=== PATIENT | male | born 1960 | race Caucasian/White ===

== ENCOUNTER 2016-09-28 10:30 | Inpatient (IN) | payer OTHER ==
[2016-09-28 12:31] VITALS: BMI 30.1
--- NOTE | 2016-09-28 15:40 | HP ---
COWS - Scale Resting Pulse: 0= [place] 80 or Below Sweatin=Flushed/Facial Moisture Restless Observation: 1= Difficult to Sit Still Pupil Size: 2= Moderately Dilated Bone or Joint Aches: 1= Mild Discomfort Runny Nose/ Eye Tearin= Runny Nose/Eyes GI Upset > 30mins: 2= Nausea/Diarrhea Tremor Observation: 2= Slight Tremor Visible Yawning Observation: 1= 1-2x During Session Anxiety or Irritability: 2=Irritable/Anxious Goose Flesh Skin: 0=Smooth Skin COWS Score: 15 CIWA Score - CIWA Score Nausea/Vomitin-Mild Nausea/No Vomiting Muscle Tremors: 4-Moderate,w/Arms Extend Anxiety: 4-Mod. Anxious/Guarded Agitation: 4-Moderately Restless Paroxysmal Sweats: 3 Orientation: 0-Oriented Tacttile Disturbances: 0-None Auditory Disturbances: 0-None Visual Disturbances: 0-None Headache: 0-None Present CIWA-Ar Total Score: 16 Admission ROS BHS - HPI Chief Complaint: Withdrawal sx. Allergies/Adverse Reactions: Allergies Allergy/AdvReac Type Severity Reaction Status Date / Time No Known Allergies Allergy Verified 09/28/16 14:21 History of Present Illness: 55 y/o man with a long hx. of heroin & alcohol dependence is admitted for detox. Pt. has been in previous detox,reports 5 yrs. sobriety. Exam Limitations: No Limitations - Ebola screening Have you traveled outside of the country in the last 21 days: No Have you had contact with anyone from an Ebola affected area: No Have you been sick,other than usual withdrawal symptoms: No - Review of Systems Constitutional: Diaphoresis EENT: reports: Nose Congestion Respiratory: reports: No Symptoms reported Cardiac: reports: No Symptoms Reported GI: reports: Nausea, Abdominal cramping : reports: No Symptoms Reported Musculoskeletal: reports: Back Pain, Joint Pain, Muscle Pain Integumentary: reports: Sweating Neuro: reports: Tremors Endocrine: reports: No Symptoms Reported Hematology: reports: No Symptoms Reported Psychiatric: reports: No Sypmtoms Reported Other Systems: Reviewed and Negative Patient History - Patient Medical History Hx Anemia: No Hx Asthma: No Hx Chronic Obstructive Pulmonary Disease (COPD): No Hx Cancer: No Hx Cardiac Disorders: Yes (triple bypass sx in 12/2015) Hx Congestive Heart Failure: No Hx Hypertension: Yes (was on cozaar) Hx Hypercholesterolemia: No Hx Pacemaker: No HX Cerebrovascular Accident: No Hx Seizures: No Hx Dementia: No Hx Diabetes: Yes (IDDM) Hx Gastrointestinal Disorders: No Hx Liver Disease: No Hx Genitourinary Disorders: No Hx Sexually Transmitted Disorders: No Hx Renal Disease (ESRD): No Hx Thyroid Disease: No Hx Human Immunodeficiency Virus (HIV): No Hx Hepatitis C: No Hx Depression: Yes Hx Suicide Attempt: No Hx Bipolar Disorder: No Hx Schizophrenia: No - Patient Surgical History Past Surgical History: No Hx Neurologic Surgery: No Hx Cataract Extraction: No Hx Cardiac Surgery: Yes (triple bypass in 12/2015) Hx Lung Surgery: No Hx Breast Surgery: No Hx Breast Biopsy: No Hx Abdominal Surgery: No Hx Appendectomy: No Hx Cholecystectomy: No Hx Genitourinary Surgery: No Hx Section: No Hx Orthopedic Surgery: No Anesthesia Reaction: No - PPD History Previous Implant?: Yes Documented Results: Positive w/o proof PPD to be Administered?: No - Smoking Cessation Smoking history: Current every day smoker Have you smoked in the past 12 months: Yes If you are a former smoker, when did you quit?: at age 30 Cigars Per Day: 7 Hx Chewing Tobacco Use: No Initiated information on smoking cessation: Yes 'Breaking Loose' booklet given: 09/28/16 - Substance & Tx. History Hx Alcohol Use: Yes Hx Substance Use: Yes Substance Use Type: Alcohol, Heroin Hx Substance Use Treatment: Yes (detox) - Substances Abused Heroin Route: Injection Frequency: Daily Amount used: 6 bags Age of first use: 30 Date of Last Use: 09/27/16 Alcohol-jan/beer Route: Oral Frequency: Daily Amount used: 2 pts./2-6 pks. Age of first use: 25 Date of Last Use: 09/28/16 Family Disease History - Family Disease History Family Disease History: Diabetes: Grandparent, Heart Disease: Father ([place]) Admission Physical Exam BHS - Vital Signs Vital Signs: Vital Signs - 24 hr 09/28/16 12:29 Temperature 97 F L Pulse Rate 78 Respiratory 20 Rate Blood Pressure 134/77 - Physical General Appearance: Yes: Alcohol on Breath, Tremorous, Irritable, Sweating, Anxious HEENTM: Yes: Nasal Congestion, Rhinorrhea Respiratory: Yes: Within Normal Limits, Chest Non-Tender, Lungs Clear Neck: Yes: Supple Breast: Yes: Breast Exam Deferred Cardiology: Yes: Regular Rhythm, Regular Rate, S1, S2 Abdominal: Yes: Normal Bowel Sounds, Non Tender, Soft Genitourinary: Yes: Within Normal Limits Back: Yes: Within Normal Limits Musculoskeletal: Yes: Within Normal Limits Extremities: Yes: Tremors Neurological: Yes: Fully Oriented, Alert Integumentary: Yes: Within Normal Limits Lymphatic: Yes: Within Normal Limits - Diagnostic (1) Essential hypertension Current Visit: Yes Status: Active (2) Nicotine dependence Current Visit: Yes Status: Acute Qualifiers: Nicotine product type: cigarettes Substance use status: uncomplicated Qualified Code(s): F17.210 - Nicotine dependence, cigarettes, uncomplicated (3) Type 2 diabetes mellitus Current Visit: Yes Status: Acute Qualifiers: Diabetes mellitus complication status: without complication Diabetes mellitus assisted insulin use: with assisted use Qualified Code(s): E11.9 - Type 2 diabetes mellitus without complications; Z79.4 - terminal gauger ( current) use of insulin (4) Alcohol dependence with uncomplicated withdrawal Current Visit: Yes Status: Acute (5) Opioid dependence with withdrawal Current Visit: Yes Status: Acute Cleared for Admission [facility] - Detox or Rehab [facility] Level of Care: Medically Managed Detox Regimen/Protocol: Methadone/Librium [facility] Breath Alcohol Content Breath Alcohol Content: 0.025 Urine Drug Screen - Results Drug Screen Negative: No Urine Drug Screen Results: ROZINA-Cocaine, OPI-Opiates, MTD-Methadone
[2016-09-28] MEDS ORDERED: NICOTINE POLACRILEX 2 MG GUM BUC PRN (15:51)
[2016-09-28] MEDS ORDERED: MAGNESIUM CITRATE 300 ML BOTTLE PO PRN (15:51)
[2016-09-28] MEDS ORDERED: hydrOXYzine PAMOATE 50 MG CAPSULE (FP) PO PRN (15:51)
[2016-09-28] MEDS ORDERED: P-EPHED 60MG/TRIPROLIDI 2.5MG TABLET PO PRN (15:51)
[2016-09-28] MEDS ORDERED: guaiFENesin/D-METHORPHAN HB 10 ML UNIT-DOSE CUPS PO PRN (15:51)
[2016-09-28] MEDS ORDERED: MAGNESIUM HYDROX 2400MG/30ML ORAL SUSPENSION 30 ML CUP PO PRN (15:51)
[2016-09-28] MEDS ORDERED: MENTHOL/PHENOL 1 EACH UD MM PRN (15:51)
[2016-09-28] MEDS ORDERED: MAG HYDROX/AL HYDROX/SIMETH 30 ML UNIT-DOSE CUP PO PRN (15:51)
[2016-09-28] MEDS ORDERED: chlordiazePOXIDE HCL 25 MG CAPSULE PO PRN (15:51)
[2016-09-28] MEDS ORDERED: ACETAMINOPHEN 325 MG TABLET (FP) PO PRN (15:51)
[2016-09-28] MEDS ORDERED: IBUPROFEN 400 MG TABLET (FP) PO PRN (15:51)
[2016-09-28] MEDS ORDERED: LOPERAMIDE HCL 2 MG CAPSULE PO PRN (15:51)
[2016-09-28] MEDS ORDERED: METHADONE HCL 10 MG TABLET (FOR DETOX USE ONLY) PO ONE ×2 (16:45→23:00)
[2016-09-28] MEDS: NICOTINE 14 MG/24 HOURS TOPICAL PATCH TD SCH (17:46)
[2016-09-28] MEDS: ASPIRIN 81 MG CHEWABLE TABLETS PO SCH (17:48)
[2016-09-28] MEDS: chlordiazePOXIDE HCL 25 MG CAPSULE PO SCH ×2 (17:48→22:24)
[2016-09-28] MEDS: metFORMIN HCL 500 MG TABLET (FP) PO SCH (17:48)
[2016-09-28] MEDS ORDERED: diphenhydrAMINE HCL 50 MG CAPSULE PO PRN (22:00)
[2016-09-28] MEDS: THIAMINE HCL 100 MG TABLET (FP) PO SCH (22:23)
[2016-09-29 00:12] LABS: URINE APPEARANCE CLEAR; URINE BILIRUBIN NEGATIVE (NEGATIVE); URINE BLOOD NEGATIVE (NEGATIVE); URINE COLOR YELLOW; URINE GLUCOSE (UA) 1+ (NEGATIVE); URINE KETONE TRACE (NEGATIVE); URINE LEUK ESTERASE NEGATIVE (NEGATIVE); URINE NITRITE NEGATIVE (NEGATIVE); URINE UROBILINOGEN NEGATIVE E.U./dl (0.2-1.0)
[2016-09-29 01:22] LABS: URINE PROTEIN 1+ (NEGATIVE)
[2016-09-29 01:40] LABS: URINE HYALINE CAST 1 /lpf; URINE MUCUS RARE; URINE RBC 1 /hpf (0-3); URINE WBC 1 /hpf (3-5)
[2016-09-29] MEDS: chlordiazePOXIDE HCL 25 MG CAPSULE PO SCH ×3 (05:30→11:00)
[2016-09-29] MEDS: metFORMIN HCL 500 MG TABLET (FP) PO SCH ×2 (07:28→17:50)
[2016-09-29] MEDS ORDERED: METHADONE HCL 10 MG TABLET (FOR DETOX USE ONLY) PO SCH (10:00)
[2016-09-29] MEDS: ASPIRIN 81 MG CHEWABLE TABLETS PO SCH (10:30)
[2016-09-29] MEDS: NICOTINE 14 MG/24 HOURS TOPICAL PATCH TD SCH (10:30)
[2016-09-29] MEDS: PRENATAL VITAMINS W/ FOLIC ACID TABLET (FP) PO SCH (10:30)
[2016-09-29 10:36] LABS: MCH 28.8 pg (25.7-33.7); MCHC 33.1 g/dl (32.0-35.9); MEAN CELL VOLUME 86.9 fl (80-96); MEAN PLT VOLUME 12.1 fl (7.5-11.1); PLATELET COUNT 109 K/MM3 (134-434); RDW 14.4 % (11.9-15.9); WHITE BLOOD COUNT 7.5 K/mm3 (4.0-10.0)
[2016-09-29 10:54] LABS: ALBUMIN 3.6 g/dl (3.4-5.0); ALK PHOS 147 U/L (45-117); ANION GAP 12 (8-16); BILIRUBIN,TOTAL 0.4 mg/dL (0.2-1.0); CALCIUM 8.6 mg/dL (8.5-10.1); CO2 24 mmol/L (21-32); COCKROFT - GAULT 130.04; CREATININE 0.7 mg/dL (0.7-1.3); GLUCOSE,RANDOM 209 mg/dL (74-106); SGOT/AST 42 U/L (15-37); SGPT/ALT 39 U/L (12-78); TOT PROT 7.4 g/dl (6.4-8.2)
[2016-09-29] MEDS ORDERED: diazePAM 5 MG TABLET PO ONE (12:16)
[2016-09-29] MEDS ORDERED: diazePAM 5 MG TABLET PO PRN (12:16)
[2016-09-29 12:49] LABS: HIV 1 & 2 AB NEGATIVE; HIV 1 AGp24 NEGATIVE
--- NOTE | 2016-09-29 13:52 | CONSULT ---
[facility] Psychiatric Consult - Data Date of interview: 09/29/16 Admission source: [facility] Identifying data: Readmission to [facility] for this 55 y/o male seeking detox treatment for alcohol,heroin and cocaine dependence.Patient is ,a father of six,domiciled,unemployed and supported on [facility] benefits. Substance Abuse History: - Smoking Cessation. Smoking history: Current every day smoker. Have you smoked in the past 12 months: Yes. If you are a former smoker, when did you quit?: at age 30. Cigars Per Day: 7. Hx Chewing Tobacco Use: No. Initiated information on smoking cessation: Yes. 'Breaking Loose' booklet given: 09/28/16. - Substance & Tx. History. Hx Alcohol Use: Yes. Hx Substance Use: Yes. Substance Use Type: Alcohol, Heroin. Hx Substance Use Treatment: Yes (detox). - Substances Abused. Heroin. Route: Injection. Frequency: Daily. Amount used: 6 bags. Age of first use: 30. Date of Last Use : 09/27/16. Alcohol-jan/beer. Route: Oral. Frequency: Daily. Amount used: 2 pts./2-6 pks. Age of first use: 25. Date of Last Use: 09/28/16. Confirmed by patient. Medical History: Arthritis,hypertension,diabetes mellitus and a history of triple bypass (206). Psychiatric History: Patient denies history of psychiatric hospitalizations.No current OPD care.Mr Coreas indicates that he used to be prescribed seroquel 25- 50 mg/hs for insomnia (primary care doctor).No history of suicide attempts. Physical/Sexual Abuse/Trauma History: Patient denies. Additional Comment: Urine Drug Screen Results: ROZINA-Cocaine, OPI-Opiates, MTD- Methadone.Noted. Mental Status Exam - Mental Status Exam Alert and Oriented to: Time, Place, Person Cognitive Function: Good Patient Appearance: Disheveled Mood: Withdrawn, Irritable Affect: Mood Congruent Patient Behavior: Passive, Fatigued, Cooperative Speech Pattern: Clear Voice Loudness: Normal Thought Process: Goal Oriented Thought Disorder: Not Present Hallucinations: Denies Suicidal Ideation: Denies Homicidal Ideation: Denies Insight/Judgement: Poor Sleep: Poorly, Difficulty falling asleep Appetite: Good Muscle strength/Tone: Normal Gait/Station: Normal Psychiatric Findings - Problem List ([place] 1, 2,3) (1) Alcohol dependence with uncomplicated withdrawal Current Visit: Yes Status: Acute (2) Opioid dependence with withdrawal Current Visit: Yes Status: Acute (3) Cocaine dependence Current Visit: Yes Status: Acute (4) Nicotine dependence Current Visit: Yes Status: Acute Qualifiers: Nicotine product type: cigarettes Substance use status: uncomplicated Qualified Code(s): F17.210 - Nicotine dependence, cigarettes, uncomplicated (5) Type 2 diabetes mellitus Current Visit: Yes Status: Chronic Qualifiers: Diabetes mellitus complication status: without complication Diabetes mellitus equipment operator intermodal yard insulin use: with equipment operator intermodal yard use Qualified Code(s): E11.9 - Type 2 diabetes mellitus without complications (6) Chronic back pain Current Visit: Yes Status: Chronic (7) Obesity Current Visit: Yes Status: Chronic (8) Insomnia Current Visit: Yes Status: Chronic - Initial Treatment Plan Initial Treatment Plan: Psychoeducation.Detoxification.Seroquel 25 mg po hs ( patient's request).Side effects/benefits discussed with patient.Observation.
[2016-09-29] MEDS: diazePAM 5 MG TABLET PO SCH ×2 (14:10→22:22)
[2016-09-29] MEDS ORDERED: chlordiazePOXIDE HCL 25 MG CAPSULE PO SCH (17:00)
--- NOTE | 2016-09-29 17:09 | PN ---
S CIWA - CIWA Score Nausea/Vomitin-No Nausea/No Vomiting Muscle Tremors: 3 Anxiety: 4-Mod. Anxious/Guarded Agitation: 3 Paroxysmal Sweats: 3 Orientation: 0-Oriented Tacttile Disturbances: 2-Mild Itch/Numbness/Burn Auditory Disturbances: 2-Mild Harshness/Frighten Visual Disturbances: 0-None Headache: 2-Mild CIWA-Ar Total Score: 19 BHS COWS - Scale Resting Pulse: 0= [place] 80 or Below Sweatin= Chills/Flushing Restless Observation: 1= Difficult to Sit Still Pupil Size: 0= Normal to Room Light Bone or Joint Aches: 2= Severe Diffuse Aches Runny Nose/ Eye Tearin= Runny Nose/Eyes GI Upset > 30mins: 1= Stomach Cramp Tremor Observation of Outstretched Hands: 2= Slight Tremor Visible Yawning Observation: 1= 1-2x During Session Anxiety or Irritability: 2=Irritable/Anxious Goose Flesh Skin: 3=Piloerection COWS Score: 15 S Progress Note (SOAP) Subjective: Constipation, H/A, Body Aches,Interrupted sleep. Pt. reports that he has considerable difficulty swallowing Librium and that it causes him Stomach discomfort. Objective: PT. A & O X 3, OBSERVED AMBULATING ON UNIT. 09/29/16 17:07 Vital Signs Temperature 98 F 09/29/16 13:59 Pulse Rate 74 09/29/16 13:59 Respiratory Rate 20 09/29/16 13:59 Blood Pressure 129/81 09/29/16 13:59 O2 Sat by Pulse Oximetry (%) Laboratory Last Values WBC 7.5 K/mm3 (4.0-10.0) 09/29/16 06:30 RBC 5.48 M/mm3 (4.00-5.60) 09/29/16 06:30 Hgb 15.8 GM/dL (11.7-16.9) 09/29/16 06:30 Hct 47.6 % (35.4-49) 09/29/16 06:30 MCV 86.9 fl (80-96) 09/29/16 06:30 MCHC 33.1 g/dl (32.0-35.9) 09/29/16 06:30 RDW 14.4 % (11.9-15.9) 09/29/16 06:30 Plt Count 109 K/MM3 (134-434) L 09/29/16 06:30 MPV 12.1 fl (7.5-11.1) H 09/29/16 06:30 Sodium 138 mmol/L (136-145) 09/29/16 06:30 Potassium 3.6 mmol/L (3.5-5.1) 09/29/16 06:30 Chloride 102 mmol/L (98-107) 09/29/16 06:30 Carbon Dioxide 24 mmol/L (21-32) 09/29/16 06:30 Anion Gap 12 (8-16) 09/29/16 06:30 BUN 10 mg/dL (7-18) D 09/29/16 06:30 Creatinine 0.7 mg/dL (0.7-1.3) 09/29/16 06:30 Creat Clearance w eGFR > 60 (>60) 09/29/16 06:30 POC Glucometer 229 UNITS (()) 09/29/16 05:30 Random Glucose 209 mg/dL (74-106) H D 09/29/16 06:30 Calcium 8.6 mg/dL (8.5-10.1) 09/29/16 06:30 Total Bilirubin 0.4 mg/dL (0.2-1.0) D 09/29/16 06:30 AST 42 U/L (15-37) H D 09/29/16 06:30 ALT 39 U/L (12-78) D 09/29/16 06:30 Alkaline Phosphatase 147 U/L (45-117) H 09/29/16 06:30 Total Protein 7.4 g/dl (6.4-8.2) 09/29/16 06:30 Albumin 3.6 g/dl (3.4-5.0) 09/29/16 06:30 Urine Color Yellow 09/28/16 21:16 Urine Appearance Clear 09/28/16 21:16 Urine pH 5.0 (5.0-8.0) 09/28/16 21:16 Ur Specific [place] 1.024 (1.001-1.035) 09/28/16 21:16 Urine Protein 1+ (NEGATIVE) H 09/28/16 21:16 Urine Glucose (UA) 1+ (NEGATIVE) H 09/28/16 21:16 Urine Ketones Trace (NEGATIVE) H 09/28/16 21:16 Urine Blood Negative (NEGATIVE) 09/28/16 21:16 Urine Nitrite Negative (NEGATIVE) 09/28/16 21:16 Urine Bilirubin Negative (NEGATIVE) 09/28/16 21:16 Urine Urobilinogen Negative E.U./dl (0.2-1.0) 09/28/16 21:16 Ur Leukocyte Esterase Negative (NEGATIVE) 09/28/16 21:16 Urine RBC 1 /hpf (0-3) 09/28/16 21:16 Urine WBC 1 /hpf (3-5) 09/28/16 21:16 Hyaline Casts 1 /lpf 09/28/16 21:16 Urine Mucus Rare 09/28/16 21:16 RPR Titer Nonreactive (NONREACTIVE) 09/29/16 06:30 HIV 1&2 Antibody Screen Negative 09/28/16 10:00 HIV P24 Antigen Negative 09/28/16 10:00 LABS NOTED. Assessment: 09/29/16 17:08 WITHDRAWAL SYMPTOMS. Plan: LIBRIUM DETOX REGIMEN CHANGED TO VALIUM DETOX REGIMEN. CONTINUE METHADONE DETOX REGIMEN. BGM BIDAC. INITIATE REGULAR INSULIN SLIDING SCALE. ADVISED PATIENT TO FOLLOW-UP WITH LOAN DOCUMENTATION SPECIALIST / REHAB MEDICAL PROVIDER AFTER DISCHARGE FROM DETOX FOR GENERAL MEDICAL ASSESSMENT AND FOR ABNORMAL ADMISSION LAB VALUES.
[2016-09-29] MEDS: QUEtiapine FUMARATE 25 MG TABLET (FP) PO SCH (22:22)
[2016-09-29] MEDS: THIAMINE HCL 100 MG TABLET (FP) PO SCH (22:22)
[2016-09-30] MEDS: diazePAM 5 MG TABLET PO SCH ×3 (05:27→22:23)
[2016-09-30] MEDS ORDERED: INSULIN (NOVOLOG) ASPART 100 UNITS/ML 10ML VIAL ONE ×2 (05:30→17:06)
[2016-09-30] MEDS: metFORMIN HCL 500 MG TABLET (FP) PO SCH ×2 (07:11→17:40)
[2016-09-30] MEDS: INSULIN SLIDING SCALE (NOVOLOG) 1 VIAL SQ SCH ×2 (07:11→17:40)
[2016-09-30] MEDS: METHADONE HCL 5 MG TABLET (FOR DETOX USE ONLY) PO SCH (10:27)
[2016-09-30] MEDS: NICOTINE 14 MG/24 HOURS TOPICAL PATCH TD SCH (10:27)
[2016-09-30] MEDS: PRENATAL VITAMINS W/ FOLIC ACID TABLET (FP) PO SCH (10:27)
[2016-09-30] MEDS: ASPIRIN 81 MG CHEWABLE TABLETS PO SCH (10:27)
--- NOTE | 2016-09-30 11:54 | PN ---
S CIWA - CIWA Score Nausea/Vomitin Muscle Tremors: 4-Moderate,w/Arms Extend Anxiety: 4-Mod. Anxious/Guarded Agitation: 4-Moderately Restless Paroxysmal Sweats: 3 Orientation: 0-Oriented Tacttile Disturbances: 0-None Auditory Disturbances: 0-None Visual Disturbances: 0-None Headache: 0-None Present CIWA-Ar Total Score: 18 BHS COWS - Scale Resting Pulse: 1= [place] 81-100 Sweatin= Chills/Flushing Restless Observation: 1= Difficult to Sit Still Pupil Size: 1= Pupils >than Normal Bone or Joint Aches: 1= Mild Discomfort Runny Nose/ Eye Tearin= Nasal Congestion GI Upset > 30mins: 2= Nausea/Diarrhea Tremor Observation of Outstretched Hands: 2= Slight Tremor Visible Yawning Observation: 1= 1-2x During Session Anxiety or Irritability: 2=Irritable/Anxious Goose Flesh Skin: 3=Piloerection COWS Score: 16 S Progress Note (SOAP) Subjective: nausea, sweats, interrupted sleep, anxiety, tremors Objective: 09/30/16 11:53 Vital Signs - 24 hr 09/29/16 09/29/16 09/29/16 13:59 18:03 21:50 Temperature 98 F 97.7 F 96.2 F L Pulse Rate 74 70 69 Respiratory 20 20 18 Rate Blood Pressure 129/81 91/50 129/79 09/30/16 09/30/16 09/30/16 00:30 03:30 06:17 Temperature 95.8 F L Pulse Rate 69 Respiratory 18 18 18 Rate Blood Pressure 153/86 09/30/16 10:43 Temperature 96 F L Pulse Rate 74 Respiratory 19 Rate Blood Pressure 144/91 Laboratory Tests 09/28/16 09/28/16 09/29/16 10:00 21:16 05:30 WBC RBC Hgb Hct MCV MCHC RDW Plt Count MPV Sodium Potassium Chloride Carbon Dioxide Anion Gap BUN Creatinine Creat Clearance w eGFR POC Glucometer 229 Random Glucose Calcium Total Bilirubin AST ALT Alkaline Phosphatase Total Protein Albumin Urine Color Yellow Urine Appearance Clear Urine pH 5.0 Ur Specific [place] 1.024 Urine Protein 1+ H Urine Glucose (UA) 1+ H Urine Ketones Trace H Urine Blood Negative Urine Nitrite Negative Urine Bilirubin Negative Urine Urobilinogen Negative Ur Leukocyte Esterase Negative Urine RBC 1 Urine WBC 1 Hyaline Casts 1 Urine Mucus Rare RPR Titer HIV 1&2 Antibody Screen Negative HIV P24 Antigen Negative 09/29/16 09/29/16 09/29/16 06:30 06:30 06:30 WBC 7.5 RBC 5.48 Hgb 15.8 Hct 47.6 MCV 86.9 MCHC 33.1 RDW 14.4 Plt Count 109 L MPV 12.1 H Sodium 138 Potassium 3.6 Chloride 102 Carbon Dioxide 24 Anion Gap 12 BUN 10 D Creatinine 0.7 Creat Clearance w eGFR > 60 POC Glucometer Random Glucose 209 H D Calcium 8.6 Total Bilirubin 0.4 D AST 42 H D ALT 39 D Alkaline Phosphatase 147 H Total Protein 7.4 Albumin 3.6 Urine Color Urine Appearance Urine pH Ur Specific [place] Urine Protein Urine Glucose (UA) Urine Ketones Urine Blood Urine Nitrite Urine Bilirubin Urine Urobilinogen Ur Leukocyte Esterase Urine RBC Urine WBC Hyaline Casts Urine Mucus RPR Titer Nonreactive HIV 1&2 Antibody Screen HIV P24 Antigen 09/29/16 09/30/16 17:21 05:28 WBC RBC Hgb Hct MCV MCHC RDW Plt Count MPV Sodium Potassium Chloride Carbon Dioxide Anion Gap BUN Creatinine Creat Clearance w eGFR POC Glucometer 231 234 Random Glucose Calcium Total Bilirubin AST ALT Alkaline Phosphatase Total Protein Albumin Urine Color Urine Appearance Urine pH Ur Specific [place] Urine Protein Urine Glucose (UA) Urine Ketones Urine Blood Urine Nitrite Urine Bilirubin Urine Urobilinogen Ur Leukocyte Esterase Urine RBC Urine WBC Hyaline Casts Urine Mucus RPR Titer HIV 1&2 Antibody Screen HIV P24 Antigen hyperglycemia, elevated lfts, abnormal u/a Assessment: 09/30/16 11:53 withdrawal sx, ehpatitis Plan: cont detox, fluids, repeat u/a
--- NOTE | 2016-09-30 14:32 | EKG ---
Test Reason : Blood Pressure : / mmHG Vent. Rate : 070 BPM Atrial Rate : 070 BPM P-R Int : 160 ms QRS Dur : 084 ms QT Int : 384 ms P-R-T Axes : 006 069 028 degrees QTc Int : 414 ms NORMAL SINUS RHYTHM NONSPECIFIC T WAVE ABNORMALITY ABNORMAL ECG NO PREVIOUS ECGS AVAILABLE Confirmed by LAMONT HECK, RED ([id number]) on 09/30/2016 2:31:45 PM Referred By: Steve Jose Confirmed By:RED MIGUEL MD
[2016-09-30] MEDS ORDERED: chlordiazePOXIDE 5 MG CAPSULE PO SCH (17:00)
[2016-09-30] MEDS: THIAMINE HCL 100 MG TABLET (FP) PO SCH (22:22)
[2016-09-30] MEDS: QUEtiapine FUMARATE 25 MG TABLET (FP) PO SCH (22:22)
[2016-10-01] MEDS ORDERED: INSULIN (NOVOLOG) ASPART 100 UNITS/ML 10ML VIAL ONE ×2 (06:23→17:01)
[2016-10-01] MEDS: metFORMIN HCL 500 MG TABLET (FP) PO SCH ×2 (06:29→17:12)
[2016-10-01] MEDS: INSULIN SLIDING SCALE (NOVOLOG) 1 VIAL SQ SCH ×2 (07:45→17:12)
[2016-10-01] MEDS: PRENATAL VITAMINS W/ FOLIC ACID TABLET (FP) PO SCH (10:38)
[2016-10-01] MEDS: ASPIRIN 81 MG CHEWABLE TABLETS PO SCH (10:38)
[2016-10-01] MEDS: diazePAM 5 MG TABLET PO SCH ×2 (10:38→23:06)
[2016-10-01] MEDS: METHADONE HCL 5 MG TABLET (FOR DETOX USE ONLY) PO SCH (10:38)
[2016-10-01] MEDS: NICOTINE 14 MG/24 HOURS TOPICAL PATCH TD SCH (10:38)
--- NOTE | 2016-10-01 10:46 | PN ---
BHS Progress Note (SOAP) Subjective: Sweating,anxiety,interrupted sleep,restless.Has swelling at site of injection but no abscess noted. Objective: 10/01/16 10:45 Vital Signs - 8 hr 10/01/16 10/01/16 10/01/16 03:30 06:31 09:35 Temperature 96.7 F L 96.9 F L Pulse Rate 71 82 Respiratory 18 16 18 Rate Blood Pressure 131/85 116/75 Laboratory Tests 09/28/16 09/28/16 09/28/16 10:00 15:08 21:16 WBC RBC Hgb Hct MCV MCHC RDW Plt Count MPV Sodium Potassium Chloride Carbon Dioxide Anion Gap BUN Creatinine Creat Clearance w eGFR POC Glucometer 283 Random Glucose Calcium Total Bilirubin AST ALT Alkaline Phosphatase Total Protein Albumin Urine Color Yellow Urine Appearance Clear Urine pH 5.0 Ur Specific [place] 1.024 Urine Protein 1+ H Urine Glucose (UA) 1+ H Urine Ketones Trace H Urine Blood Negative Urine Nitrite Negative Urine Bilirubin Negative Urine Urobilinogen Negative Ur Leukocyte Esterase Negative Urine RBC 1 Urine WBC 1 Hyaline Casts 1 Urine Mucus Rare RPR Titer HIV 1&2 Antibody Screen Negative HIV P24 Antigen Negative 09/29/16 09/29/16 09/29/16 05:30 06:30 06:30 WBC 7.5 RBC 5.48 Hgb 15.8 Hct 47.6 MCV 86.9 MCHC 33.1 RDW 14.4 Plt Count 109 L MPV 12.1 H Sodium 138 Potassium 3.6 Chloride 102 Carbon Dioxide 24 Anion Gap 12 BUN 10 D Creatinine 0.7 Creat Clearance w eGFR > 60 POC Glucometer 229 Random Glucose 209 H D Calcium 8.6 Total Bilirubin 0.4 D AST 42 H D ALT 39 D Alkaline Phosphatase 147 H Total Protein 7.4 Albumin 3.6 Urine Color Urine Appearance Urine pH Ur Specific [place] Urine Protein Urine Glucose (UA) Urine Ketones Urine Blood Urine Nitrite Urine Bilirubin Urine Urobilinogen Ur Leukocyte Esterase Urine RBC Urine WBC Hyaline Casts Urine Mucus RPR Titer HIV 1&2 Antibody Screen HIV P24 Antigen 09/29/16 09/29/16 09/30/16 06:30 17:21 05:28 WBC RBC Hgb Hct MCV MCHC RDW Plt Count MPV Sodium Potassium Chloride Carbon Dioxide Anion Gap BUN Creatinine Creat Clearance w eGFR POC Glucometer 231 234 Random Glucose Calcium Total Bilirubin AST ALT Alkaline Phosphatase Total Protein Albumin Urine Color Urine Appearance Urine pH Ur Specific [place] Urine Protein Urine Glucose (UA) Urine Ketones Urine Blood Urine Nitrite Urine Bilirubin Urine Urobilinogen Ur Leukocyte Esterase Urine RBC Urine WBC Hyaline Casts Urine Mucus RPR Titer Nonreactive HIV 1&2 Antibody Screen HIV P24 Antigen 09/30/16 10/01/16 16:08 05:35 WBC RBC Hgb Hct MCV MCHC RDW Plt Count MPV Sodium Potassium Chloride Carbon Dioxide Anion Gap BUN Creatinine Creat Clearance w eGFR POC Glucometer 333 408 Random Glucose Calcium Total Bilirubin AST ALT Alkaline Phosphatase Total Protein Albumin Urine Color Urine Appearance Urine pH Ur Specific [place] Urine Protein Urine Glucose (UA) Urine Ketones Urine Blood Urine Nitrite Urine Bilirubin Urine Urobilinogen Ur Leukocyte Esterase Urine RBC Urine WBC Hyaline Casts Urine Mucus RPR Titer HIV 1&2 Antibody Screen HIV P24 Antigen labs noted Assessment: 10/01/16 10:46 Withdrawal sx. Plan: Continue detox bacitracin oin't to needle [email or web address]
[2016-10-01] MEDS: BACITRACIN 0.9 GM PACKET TP SCH ×2 (12:17→23:06)
[2016-10-01] MEDS ORDERED: chlordiazePOXIDE HCL 10 MG CAPSULE PO SCH (17:00)
[2016-10-01] MEDS: QUEtiapine FUMARATE 25 MG TABLET (FP) PO SCH (23:06)
[2016-10-01] MEDS: THIAMINE HCL 100 MG TABLET (FP) PO SCH (23:06)
[2016-10-02] MEDS ORDERED: INSULIN (NOVOLOG) ASPART 100 UNITS/ML 10ML VIAL ONE ×2 (06:34→17:20)
[2016-10-02] MEDS: metFORMIN HCL 500 MG TABLET (FP) PO SCH ×2 (07:18→17:24)
[2016-10-02] MEDS: INSULIN SLIDING SCALE (NOVOLOG) 1 VIAL SQ SCH ×2 (07:18→17:24)
[2016-10-02] MEDS ORDERED: METHADONE HCL 10 MG TABLET (FOR DETOX USE ONLY) PO SCH (10:00)
--- NOTE | 2016-10-02 10:14 | PN ---
BHS Progress Note (SOAP) Subjective: DCREASED ANXIETY,SWEATS. EAGER TO GO TO REHAB. Objective: 10/02/16 10:13 Vital Signs Temperature 97.0 F L 10/02/16 09:22 Pulse Rate 81 10/02/16 09:22 Respiratory Rate 18 10/02/16 09:22 Blood Pressure 132/81 10/02/16 09:22 O2 Sat by Pulse Oximetry (%) Assessment: 10/02/16 10:13 WITHDRAWAL SX Plan: CONTINUE DETOX
[2016-10-02] MEDS: BACITRACIN 0.9 GM PACKET TP SCH ×2 (10:17→22:44)
[2016-10-02] MEDS: ASPIRIN 81 MG CHEWABLE TABLETS PO SCH (10:17)
[2016-10-02] MEDS: diazePAM 5 MG TABLET PO SCH ×2 (10:17→22:43)
[2016-10-02] MEDS: PRENATAL VITAMINS W/ FOLIC ACID TABLET (FP) PO SCH (10:17)
[2016-10-02] MEDS: NICOTINE 14 MG/24 HOURS TOPICAL PATCH TD SCH (10:17)
[2016-10-02] MEDS: HYDROCORTISONE 2.5% TOPICAL CREAM 30 GM TUBE TP SCH ×2 (14:50→22:46)
[2016-10-02 17:00] LABS: URINE APPEARANCE CLEAR; URINE BILIRUBIN NEGATIVE (NEGATIVE); URINE BLOOD NEGATIVE (NEGATIVE); URINE COLOR STRAW; URINE GLUCOSE (UA) 3+ (NEGATIVE); URINE KETONE NEGATIVE (NEGATIVE); URINE LEUK ESTERASE NEGATIVE (NEGATIVE); URINE NITRITE NEGATIVE (NEGATIVE); URINE PROTEIN NEGATIVE (NEGATIVE); URINE UROBILINOGEN NEGATIVE E.U./dl (0.2-1.0)
[2016-10-02] MEDS: THIAMINE HCL 100 MG TABLET (FP) PO SCH (22:43)
[2016-10-02] MEDS: QUEtiapine FUMARATE 25 MG TABLET (FP) PO SCH (22:44)
[2016-10-03] MEDS ORDERED: METHADONE HCL 5 MG TABLET (FOR DETOX USE ONLY) PO SCH (06:00)
[2016-10-03] MEDS ORDERED: INSULIN (NOVOLOG) ASPART 100 UNITS/ML 10ML VIAL ONE (06:16)
[2016-10-03] MEDS: metFORMIN HCL 500 MG TABLET (FP) PO SCH (07:29)
[2016-10-03] MEDS: INSULIN SLIDING SCALE (NOVOLOG) 1 VIAL SQ SCH (07:30)
[2016-10-03] MEDS: NICOTINE 14 MG/24 HOURS TOPICAL PATCH TD SCH (09:55)
[2016-10-03] MEDS: ASPIRIN 81 MG CHEWABLE TABLETS PO SCH (09:55)
[2016-10-03] MEDS: PRENATAL VITAMINS W/ FOLIC ACID TABLET (FP) PO SCH (09:55)
[2016-10-03] MEDS: HYDROCORTISONE 2.5% TOPICAL CREAM 30 GM TUBE TP SCH (09:56)
[2016-10-03] MEDS ORDERED: diazePAM 5 MG TABLET PO SCH (10:00)
[2016-10-03 10:19] VITALS: BP 167/102; PULSE 79; TEMP 96.3
--- NOTE | 2016-10-03 11:33 | DS ---
[facility] Detox Discharge Summary Admission Date: 09/28/16 Discharge Date: 10/03/16 - History Present History: Alcohol Dependence, Opioid Dependence Additional Comments: DETOX COMPLETED,ALERT O X 3. NAD. PT TO F/U WITH PMD FOR MEDICAL MANAGEMENT OF COMORBID CONDITIONS, PT DECLINED TO GO TO REHAB AT [address] OFFERED TODAY STATING "I'M GOING TO THE [facility]". Pertinent Past History: HTN TYPE 2 DM CAD- S/P TRIPLE BYPASS SX - Physical Exam Results Vital Signs: Vital Signs Temperature 96.3 F L 10/03/16 10:18 Pulse Rate 79 10/03/16 10:18 Respiratory Rate 20 10/03/16 10:18 Blood Pressure 167/102 10/03/16 10:18 O2 Sat by Pulse Oximetry (%) Pertinent Admission Physical Exam Findings: WITHDRAWAL SX Laboratory Last Values WBC 7.5 K/mm3 (4.0-10.0) 09/29/16 06:30 RBC 5.48 M/mm3 (4.00-5.60) 09/29/16 06:30 Hgb 15.8 GM/dL (11.7-16.9) 09/29/16 06:30 Hct 47.6 % (35.4-49) 09/29/16 06:30 MCV 86.9 fl (80-96) 09/29/16 06:30 MCHC 33.1 g/dl (32.0-35.9) 09/29/16 06:30 RDW 14.4 % (11.9-15.9) 09/29/16 06:30 Plt Count 109 K/MM3 (134-434) L 09/29/16 06:30 MPV 12.1 fl (7.5-11.1) H 09/29/16 06:30 Sodium 138 mmol/L (136-145) 09/29/16 06:30 Potassium 3.6 mmol/L (3.5-5.1) 09/29/16 06:30 Chloride 102 mmol/L (98-107) 09/29/16 06:30 Carbon Dioxide 24 mmol/L (21-32) 09/29/16 06:30 Anion Gap 12 (8-16) 09/29/16 06:30 BUN 10 mg/dL (7-18) D 09/29/16 06:30 Creatinine 0.7 mg/dL (0.7-1.3) 09/29/16 06:30 Creat Clearance w eGFR > 60 (>60) 09/29/16 06:30 POC Glucometer 243 UNITS (()) 10/03/16 05:42 Random Glucose 209 mg/dL (74-106) H D 09/29/16 06:30 Calcium 8.6 mg/dL (8.5-10.1) 09/29/16 06:30 Total Bilirubin 0.4 mg/dL (0.2-1.0) D 09/29/16 06:30 AST 42 U/L (15-37) H D 09/29/16 06:30 ALT 39 U/L (12-78) D 09/29/16 06:30 Alkaline Phosphatase 147 U/L (45-117) H 09/29/16 06:30 Total Protein 7.4 g/dl (6.4-8.2) 09/29/16 06:30 Albumin 3.6 g/dl (3.4-5.0) 09/29/16 06:30 Urine Color Straw 10/02/16 13:45 Urine Appearance Clear 10/02/16 13:45 Urine pH 8.0 (5.0-8.0) D 10/02/16 13:45 Ur Specific [place] 1.024 (1.001-1.035) 10/02/16 13:45 Urine Protein Negative (NEGATIVE) 10/02/16 13:45 Urine Glucose (UA) 3+ (NEGATIVE) H 10/02/16 13:45 Urine Ketones Negative (NEGATIVE) 10/02/16 13:45 Urine Blood Negative (NEGATIVE) 10/02/16 13:45 Urine Nitrite Negative (NEGATIVE) 10/02/16 13:45 Urine Bilirubin Negative (NEGATIVE) 10/02/16 13:45 Urine Urobilinogen Negative E.U./dl (0.2-1.0) 10/02/16 13:45 Ur Leukocyte Esterase Negative (NEGATIVE) 10/02/16 13:45 Urine RBC 1 /hpf (0-3) 09/28/16 21:16 Urine WBC 1 /hpf (3-5) 09/28/16 21:16 Hyaline Casts 1 /lpf 09/28/16 21:16 Urine Mucus Rare 09/28/16 21:16 RPR Titer Nonreactive (NONREACTIVE) 09/29/16 06:30 HIV 1&2 Antibody Screen Negative 09/28/16 10:00 HIV P24 Antigen Negative 09/28/16 10:00 - Treatment Hospital Course: Detox Protocol Followed, Detoxed Safely, Responded well, Discharged Condition Good, Rehab Referral Accepted Patient has Accepted a Rehab Referral to: REFUSED - Medication Discharge Medications: Ambulatory Orders Methadone [Dolophine] 10 mg PO BID 12/24/12 Ibuprofen [Motrin -] 600 mg PO BID PRN 08/27/14 Aspirin [ASA -] 81 mg PO DAILY 09/28/16 Gabapentin [Neurontin -] 300 mg PO Q8H 09/28/16 Insulin (Novolog) [Novolog Flexpen -] 0 units SQ TID 09/28/16 Metformin HCl [Glucophage -] 1,000 mg PO BID 09/28/16 Quetiapine Fumarate [Seroquel -] 25 mg PO HS #30 tablet 09/29/16 - Diagnosis (1) Essential hypertension Current Visit: Yes Status: Active (2) Alcohol dependence with uncomplicated withdrawal Current Visit: Yes Status: Acute (3) Nicotine dependence Current Visit: Yes Status: Acute Qualifiers: Nicotine product type: cigarettes Substance use status: in withdrawal Qualified Code(s): F17.213 - Nicotine dependence, cigarettes, with withdrawal (4) Opioid dependence with withdrawal Current Visit: Yes Status: Acute (5) Insomnia Current Visit: Yes Status: Chronic (6) Obesity Current Visit: Yes Status: Chronic (7) Type 2 diabetes mellitus Current Visit: Yes Status: Chronic Qualifiers: Diabetes mellitus complication status: without complication Diabetes mellitus intermediate card tender insulin use: with mcc use Qualified Code(s): E11.9 - Type 2 diabetes mellitus without complications (8) Chronic low back pain Current Visit: Yes Status: Chronic Qualifiers: Back pain laterality: unspecified - AMA Did Patient Leave Against Medical Advice: No
== END 2016-10-03 09:57 | disposition home or self-care (01) | DRG 897 ==
LOC: YASAS 10:30 → Y3N 15:49
PROVIDERS: ADMIT Internal Medicine; ATTEND Internal Medicine
PROC: HZ2ZZZZ Detoxification Services for Substance Abuse Treatment (ICD-10-PCS; principal; 2016-10-03)
DX: F11.23 Opioid dependence with withdrawal (principal); F10.230 Alcohol dependence with withdrawal, uncomplicated; F17.213 Nicotine dependence, cigarettes, with withdrawal; G47.00 Insomnia, unspecified; I10 Essential (primary) hypertension; E11.9 Type 2 diabetes mellitus without complications; Z79.4 Long term (current) use of insulin; M54.5 Low back pain; G89.29 Other chronic pain; E66.09 Other obesity due to excess calories; Z68.30 Body mass index [BMI] 30.0-30.9, adult
CPT/HCPCS: 36415; 71020-TC; 80053; 81003; 81015; 85027; 86593; 87389; 93005; 93010

== ENCOUNTER 2017-06-06 12:19 | Inpatient (IN) | payer OTHER ==
[2017-06-06 12:41] VITALS: BMI 28.3
[2017-06-06] MEDS ORDERED: P-EPHED 60MG/TRIPROLIDI 2.5MG TABLET PO PRN (15:36)
[2017-06-06] MEDS ORDERED: MAGNESIUM CITRATE 300 ML BOTTLE PO PRN (15:36)
[2017-06-06] MEDS ORDERED: MAGNESIUM HYDROX 2400MG/30ML ORAL SUSPENSION 30 ML CUP PO PRN (15:36)
[2017-06-06] MEDS ORDERED: guaiFENesin/D-METHORPHAN HB 10 ML UNIT-DOSE CUPS PO PRN (15:36)
[2017-06-06] MEDS ORDERED: hydrOXYzine PAMOATE 50 MG CAPSULE (FP) PO PRN (15:36)
[2017-06-06] MEDS ORDERED: MAG HYDROX/AL HYDROX/SIMETH 30 ML UNIT-DOSE CUP PO PRN (15:36)
[2017-06-06] MEDS ORDERED: ACETAMINOPHEN 325 MG TABLET (FP) PO PRN (15:36)
[2017-06-06] MEDS ORDERED: MENTHOL/PHENOL 1 EACH UD MM PRN (15:36)
[2017-06-06] MEDS ORDERED: NICOTINE POLACRILEX 2 MG GUM BC PRN (15:36)
[2017-06-06] MEDS ORDERED: IBUPROFEN 400 MG TABLET (FP) PO PRN (15:36)
--- NOTE | 2017-06-06 15:36 | HP ---
COWS - Scale Resting Pulse: 1= OK 81-100 Sweatin= Chills/Flushing Restless Observation: 1= Difficult to Sit Still Pupil Size: 1= Pupils >than Normal Bone or Joint Aches: 1= Mild Discomfort Runny Nose/ Eye Tearin= Nasal Congestion GI Upset > 30mins: 2= Nausea/Diarrhea Tremor Observation: 2= Slight Tremor Visible Yawning Observation: 1= 1-2x During Session Anxiety or Irritability: 2=Irritable/Anxious Goose Flesh Skin: 3=Piloerection COWS Score: 16 Admission [facility] Chief Complaint: heroin withdrawal sx Allergies/Adverse Reactions: Allergies Allergy/AdvReac Type Severity Reaction Status Date / Time No Known Allergies Allergy Verified 06/06/17 12:39 History of Present Illness: 56 yo m with h/o opioid use disorder, multiple admsisions for detox, s/p recent od and [facility]. denies all other alcohol and illicit drug use at this time. PMHX dm, HTN no h/o sieuzres, PTSD, no SI at this time no suicide attmepts in past. reports using street methadone today. Exam Limitations: No Limitations - Ebola screening Have you traveled outside of the country in the last 21 days: No Have you had contact with anyone from an Ebola affected area: No Have you been sick,other than usual withdrawal symptoms: No Do you have a fever: No - Review of Systems Constitutional: Chills, Diaphoresis, Loss of Appetite, Malaise, Night Sweats, Changes in sleep, Unintentional Wgt. Loss EENT: reports: Tearing, Nose Congestion Respiratory: reports: No Symptoms reported Cardiac: reports: No Symptoms Reported GI: reports: Diarrhea, Nausea, Poor Appetite, Poor Fluid Intake, Vomiting, Abdominal cramping : reports: No Symptoms Reported Musculoskeletal: reports: Back Pain, Muscle Pain Integumentary: reports: Flushing, Sweating Neuro: reports: Tremors Endocrine: reports: Increased Thirst Hematology: reports: No Symptoms Reported Psychiatric: reports: Judgement Intact, Mood/Affect Appropiate, Orientated x3, Agitated, Anxious, Depressed Other Systems: Reviewed and Negative Patient History - Patient Medical History Hx Anemia: No Hx Asthma: No Hx Chronic Obstructive Pulmonary Disease (COPD): No Hx Cancer: No Hx Cardiac Disorders: No Hx Congestive Heart Failure: No Hx Hypertension: No Hx Hypercholesterolemia: No Hx Pacemaker: No HX Cerebrovascular Accident: No Hx Seizures: No Hx Dementia: No Hx Diabetes: Yes ([id number]) Hx Gastrointestinal Disorders: No Hx Liver Disease: No Hx Genitourinary Disorders: No Hx Sexually Transmitted Disorders: No Hx Renal Disease (ESRD): No Hx Thyroid Disease: No Hx Human Immunodeficiency Virus (HIV): No Hx Hepatitis C: No Hx Depression: No Hx Suicide Attempt: No Hx Bipolar Disorder: No Hx Schizophrenia: No - Patient Surgical History Past Surgical History: No Hx Neurologic Surgery: No Hx Cataract Extraction: No Hx Cardiac Surgery: Yes (triple bypass in 12/2015) Hx Lung Surgery: No Hx Breast Surgery: No Hx Breast Biopsy: No Hx Abdominal Surgery: No Hx Appendectomy: No Hx Cholecystectomy: No Hx Genitourinary Surgery: No Hx Section: No Hx Orthopedic Surgery: No Hx Hysterectomy: No Anesthesia Reaction: No - PPD History Previous Implant?: Yes Documented Results: Positive w/proof PPD to be Administered?: No - Reproductive History Patient is a Female of Child Bearing Age (11 -55 yrs old): No Patient : No - Smoking Cessation Smoking history: Current every day smoker Have you smoked in the past 12 months: Yes Aproximately how many cigarettes per day: 9 If you are a former smoker, when did you quit?: at age 30 Cigars Per Day: 4 Hx Chewing Tobacco Use: No Initiated information on smoking cessation: Yes 'Breaking Loose' booklet given: 06/06/17 - Substance & Tx. History Hx Alcohol Use: No Hx Substance Use: Yes Substance Use Type: Heroin, Opiates Hx Substance Use Treatment: Yes (repeated detox) - Substances Abused Heroin Route: Injection Frequency: Daily Amount used: 5-6bags Age of first use: 25 Date of Last Use: 06/05/17 Family Disease History - Family Disease History Family Disease History: Diabetes: Grandparent, Heart Disease: Father (ME) Admission Physical Exam BHS - Vital Signs Vital Signs: Vital Signs - 24 hr 06/06/17 12:38 Temperature 97.3 F L Pulse Rate 82 Respiratory 20 Rate Blood Pressure 126/83 - Physical General Appearance: Yes: Nourished, Appropriately Dressed, Disheveled, Mild Distress, Thin, Tremorous, Irritable, Sweating, Anxious HEENTM: Yes: EOMI, Hearing grossly Normal, Normocephalic, Normal Voice, NAMITA, Pharynx Normal, Nasal Congestion, Rhinorrhea Respiratory: Yes: Within Normal Limits, Chest Non-Tender, Lungs Clear, Normal Breath Sounds, No Respiratory Distress, No Accessory Muscle Use Neck: Yes: Within Normal Limits, No masses,lesions,Nodules, Supple, Trachea in good position Breast: Yes: Breast Exam Deferred Cardiology: Yes: Within Normal Limits, Regular Rhythm, Regular Rate, S1, S2 Abdominal: Yes: Within Normal Limits, Normal Bowel Sounds, Non Tender, Flat Genitourinary: Yes: Within Normal Limits Back: Yes: Within Normal Limits, Normal Inspection Musculoskeletal: Yes: Within Normal Limits, full range of Motion, Gait Steady, Pelvis Stable Extremities: Yes: Normal Capillary Refill, Normal Inspection, Normal Range of Motion, Tremors Neurological: Yes: lawn maintenance worker II-XII NML intact, Fully Oriented, Alert, Motor Strength 5/5, Normal Response, Depressed Affect Integumentary: Yes: Normal Color, Warm, Diaphoresis, Track Mcfadden (mild erythema around tack mcfadden with induration, no abscess both arms and hands) - Addiitonal Findings: withdrawal sx - Diagnostic (1) Essential hypertension Current Visit: No Status: Active (2) Nicotine dependence Current Visit: No Status: Acute Qualifiers: (3) Opioid dependence with withdrawal Current Visit: No Status: Acute (4) Substance-induced sleep disorder Current Visit: No Status: Acute (5) Chronic low back pain Current Visit: No Status: Chronic (6) Type 2 diabetes mellitus Current Visit: No Status: Chronic Qualifiers: BHS Breath Alcohol Content Breath Alcohol Content: 0 Urine Drug Screen - Results Drug Screen Negative: No Urine Drug Screen Results: OPI-Opiates, MTD-Methadone
[2017-06-06] MEDS ORDERED: AMMONIUM LACTATE 12% LOTION 225 GM BOTTLE TP PRN (15:46)
[2017-06-06] MEDS ORDERED: INSULIN (NOVOLOG) ASPART 100 UNITS/ML 10ML VIAL SQ SCH (16:30)
[2017-06-06] MEDS ORDERED: METHADONE HCL 10 MG TABLET (FOR DETOX USE ONLY) PO ONE ×2 (17:15→23:00)
[2017-06-06] MEDS: diazePAM 5 MG TABLET PO PRN (17:27)
[2017-06-06] MEDS: metFORMIN HCL 500 MG TABLET (FP) PO SCH (17:28)
[2017-06-06] MEDS ORDERED: INSULIN (NOVOLOG) ASPART 100 UNITS/ML 10ML VIAL ONE (18:00)
[2017-06-06] MEDS: INSULIN SLIDING SCALE (NOVOLOG) 1 VIAL SQ SCH (18:00)
[2017-06-06] MEDS: NICOTINE 14 MG/24 HOURS TOPICAL PATCH TD SCH (18:01)
[2017-06-06] MEDS: INSULIN DETEMIR 100 UNITS/ML MDV SQ SCH (23:04)
[2017-06-06] MEDS: THIAMINE HCL 100 MG TABLET (FP) PO SCH (23:05)
[2017-06-06] MEDS: CEPHALEXIN MONOHYDRATE 500 MG CAPSULE (UD) PO SCH (23:05)
[2017-06-06 23:36] LABS: URINE APPEARANCE CLEAR; URINE BILIRUBIN NEGATIVE (NEGATIVE); URINE BLOOD NEGATIVE (NEGATIVE); URINE COLOR LTYELLOW; URINE GLUCOSE (UA) 3+ (NEGATIVE); URINE KETONE NEGATIVE (NEGATIVE); URINE LEUK ESTERASE NEGATIVE (NEGATIVE); URINE NITRITE NEGATIVE (NEGATIVE); URINE PROTEIN NEGATIVE (NEGATIVE); URINE UROBILINOGEN NEGATIVE mg/dL (0.2-1.0)
[2017-06-07] MEDS: diazePAM 5 MG TABLET PO PRN ×3 (05:48→22:15)
[2017-06-07] MEDS ORDERED: INSULIN (NOVOLOG) ASPART 100 UNITS/ML 10ML VIAL ONE (06:43)
[2017-06-07] MEDS: INSULIN SLIDING SCALE (NOVOLOG) 1 VIAL SQ SCH ×3 (06:43→18:06)
[2017-06-07] MEDS: metFORMIN HCL 500 MG TABLET (FP) PO SCH ×2 (06:47→18:05)
[2017-06-07] MEDS ORDERED: METHADONE HCL 10 MG TABLET (FOR DETOX USE ONLY) PO ONE (10:00)
[2017-06-07] MEDS: PRENATAL VITAMINS W/ FOLIC ACID TABLET (FP) PO SCH (10:06)
[2017-06-07] MEDS: CEPHALEXIN MONOHYDRATE 500 MG CAPSULE (UD) PO SCH ×2 (10:06→22:16)
[2017-06-07] MEDS: ASPIRIN 81 MG CHEWABLE TABLETS PO SCH (10:06)
[2017-06-07] MEDS: NICOTINE 14 MG/24 HOURS TOPICAL PATCH TD SCH (10:07)
[2017-06-07 10:10] LABS: CHLORIDE 100 mmol/L (98-107); POTASSIUM 4.4 mmol/L (3.5-5.1); SODIUM 134 mmol/L (136-145)
[2017-06-07 10:11] LABS: HEMATOCRIT 48.4 % (35.4-49); HEMOGLOBIN 15.9 GM/dL (11.7-16.9); MCH 28.7 pg (25.7-33.7); MCHC 32.9 g/dl (32.0-35.9); MEAN PLT VOLUME 11.7 fl (7.5-11.1); PLATELET COUNT 167 K/MM3 (134-434); RBC 5.57 M/mm3 (4.00-5.60); RDW 14.5 % (11.9-15.9)
[2017-06-07 10:21] LABS: ALBUMIN 3.8 g/dl (3.4-5.0); ALK PHOS 159 U/L (45-117); ANION GAP 7 (8-16); BILIRUBIN,TOTAL 0.4 mg/dL (0.2-1.0); BLOOD UREA NITROGEN 15 mg/dL (7-18); CO2 27 mmol/L (21-32); CREATININE 0.8 mg/dL (0.7-1.3); SGOT/AST 22 U/L (15-37); SGPT/ALT 30 U/L (12-78); TOT PROT 7.6 g/dl (6.4-8.2)
[2017-06-07 11:24] LABS: GLUCOSE,RANDOM 353 mg/dL (74-106)
--- NOTE | 2017-06-07 11:52 | CONSULT ---
[facility] Psychiatric Consult - Data Date of interview: 06/07/17 Admission source: [facility] Identifying data: Another admission to [facility] for this 56 y/o [place] male seeking detox treatment,on , for heroin dependence.Patient is ,a father of six,domiciled,unemployed and supported on SSI benefits. Substance Abuse History: Confirmed by patient in this session.See details in current [facility] report : Smoking history: Current every day smoker. Have you smoked in the past 12 months: Yes. Aproximately how many cigarettes per day: 9. If you are a former smoker, when did you quit?: at age 30. Cigars Per Day: 4. Hx Chewing Tobacco Use: No. Initiated information on smoking cessation: Yes. 'Breaking Loose' booklet given: 06/06/17. - Substance & Tx. History. Hx Alcohol Use: No. Hx Substance Use: Yes. Substance Use Type: Heroin, Opiates. Hx Substance Use Treatment: Yes (repeated detox). - Substances Abused. Heroin. Route: Injection. Frequency: Daily. Amount used: 5-6bags. Age of first use: 25. Date of Last Use: 06/05/17 Medical History: Weight loss,arthritis,hypertension,diabetes mellitus and a history of triple bypass (2016). Psychiatric History: Patient admits to a remote history of psychiatric hospitalizations (years ago).Locations not recalled.Patient endorses the diagnosis of PTSD.Mr Coreas indicates that he gets his outpatient psychiatric services at the [facility].Reportedly maintained on seroquel + xanax.Doses and date of most recent medications intake : unknown.No history of suicide attempts. Physical/Sexual Abuse/Trauma History: Patient reports past history of six years of service in the [employer].Declines to elaborate on particulars of his background. Additional Comment: Urine Drug Screen Results: OPI-Opiates, MTD-Methadone.Noted. Mental Status Exam - Mental Status Exam Alert and Oriented to: Time, Place, Person Cognitive Function: Good Patient Appearance: Well Groomed (short stature) Mood: Nervous, Withdrawn, Anxious Affect: Mood Congruent Patient Behavior: Fatigued, Appropriate, Cooperative Speech Pattern: Clear, Appropriate Voice Loudness: Normal Thought Process: Goal Oriented Thought Disorder: Not Present Hallucinations: Denies Suicidal Ideation: Denies Homicidal Ideation: Denies Insight/Judgement: Poor Sleep: Poorly, Difficulty falling asleep (requests seroquel) Appetite: Good Muscle strength/Tone: Normal Gait/Station: Normal Psychiatric Findings - Problem List (Marlin 1, 2,3) (1) Opioid dependence with withdrawal Current Visit: Yes Status: Acute (2) Nicotine dependence Current Visit: Yes Status: Chronic Qualifiers: (3) Substance induced mood disorder Current Visit: Yes Status: Acute (4) Insomnia Current Visit: Yes Status: Chronic - Initial Treatment Plan Initial Treatment Plan: Psychoeducation.Detoxification.Sleep hygiene.Seroquel 50 mg po hs.Side effects/benefits discused with the patient.Mr Coreas expresses agreement with this careplan.Observation.
[2017-06-07] MEDS ORDERED: FLU VACCINE QUAD 60 MCG/0.5 ML (MDV 17-18) IM ONE (12:00)
--- NOTE | 2017-06-07 13:36 | PN ---
BHS COWS - Scale Resting Pulse: 0= HI 80 or Below Sweatin= Chills/Flushing Restless Observation: 3= Extraneous Movement Pupil Size: 0= Normal to Room Light Bone or Joint Aches: 2= Severe Diffuse Aches Runny Nose/ Eye Tearin= Runny Nose/Eyes GI Upset > 30mins: 2= Nausea/Diarrhea Tremor Observation of Outstretched Hands: 2= Slight Tremor Visible Yawning Observation: 0= None Anxiety or Irritability: 2=Irritable/Anxious Goose Flesh Skin: 0=Smooth Skin COWS Score: 14 BHS Progress Note (SOAP) Subjective: N/V, interrupted sleep (stated he takes seroquel and ambien at home sometimes), c/o chest pain which started last night described as sharp to left anterior chest wall. Chest pain comes and goes as per patient with present pain scale 6/ 10, non radiating, not associated with breathing, denies sob or diaphoresis. Patient denies any cardiac history despite documented history of triple bypass in 12/2015 and denies family history of VA or any heart disease. Patient appears to be minimizing his symptoms and told residential mortgage underwriter he doesn't have the pain anymore then he later told residential mortgage underwriter that the pain is going away yet he had told residential mortgage underwriter initially that the pain scale is 6/10. Business Professor told patient that he will be transferred to the ER for further evaluation and he got upset, irritable and agitated at residential mortgage underwriter and got out of the bed and told residential mortgage underwriter to leave him the fuck alone and stop worrying about him because he is fine and he will sign himself out if he has to go to the ER. Nurse spoke with patient and he decided to go to the ER for further evaluation. Objective: 06/07/17 13:36 Last Vital Signs Temp Pulse Resp BP Pulse Ox 97.2 F L 78 18 98/69 06/07/17 09:31 06/07/17 11:31 06/07/17 11:31 06/07/17 11:31 B/P noted 98/69: hypotension PE: Resp: lungs ctab/l, no added breath sounds Chest: no tenderness on palpation to left anterior chest wall CV: rrr, s1s2+, apical rate 80 bpm Skin: warm to touch, turgor good EKG on 06/06/17: NSR at 69 bpm Laboratory Tests 06/06/17 06/06/17 06/06/17 12:55 15:15 17:21 WBC RBC Hgb Hct MCV MCH MCHC RDW Plt Count MPV Sodium Potassium Chloride Carbon Dioxide Anion Gap BUN Creatinine Creat Clearance w eGFR POC Glucometer 315 339 Random Glucose Calcium Total Bilirubin AST ALT Alkaline Phosphatase Total Protein Albumin Urine Color Urine Appearance Urine pH Ur Specific [place] Urine Protein Urine Glucose (UA) Urine Ketones Urine Blood Urine Nitrite Urine Bilirubin Urine Urobilinogen Ur Leukocyte Esterase RPR Titer HIV 1&2 Antibody Screen Negative HIV P24 Antigen Negative 06/06/17 06/06/17 06/07/17 20:07 23:03 05:48 WBC RBC Hgb Hct MCV MCH MCHC RDW Plt Count MPV Sodium Potassium Chloride Carbon Dioxide Anion Gap BUN Creatinine Creat Clearance w eGFR POC Glucometer 227 256 Random Glucose Calcium Total Bilirubin AST ALT Alkaline Phosphatase Total Protein Albumin Urine Color Ltyellow Urine Appearance Clear Urine pH 5.0 D Ur Specific [place] 1.031 Urine Protein Negative Urine Glucose (UA) 3+ H Urine Ketones Negative Urine Blood Negative Urine Nitrite Negative Urine Bilirubin Negative Urine Urobilinogen Negative Ur Leukocyte Esterase Negative RPR Titer HIV 1&2 Antibody Screen HIV P24 Antigen 06/07/17 06/07/17 06/07/17 06:00 06:00 06:00 WBC 10.0 D RBC 5.57 Hgb 15.9 Hct 48.4 MCV 87.0 MCH 28.7 MCHC 32.9 RDW 14.5 Plt Count 167 D MPV 11.7 H Sodium 134 L Potassium 4.4 D Chloride 100 Carbon Dioxide 27 Anion Gap 7 L BUN 15 D Creatinine 0.8 Creat Clearance w eGFR > 60 POC Glucometer Random Glucose 353 H* D Calcium 9.0 Total Bilirubin 0.4 AST 22 D ALT 30 D Alkaline Phosphatase 159 H Total Protein 7.6 Albumin 3.8 Urine Color Urine Appearance Urine pH Ur Specific [place] Urine Protein Urine Glucose (UA) Urine Ketones Urine Blood Urine Nitrite Urine Bilirubin Urine Urobilinogen Ur Leukocyte Esterase RPR Titer Nonreactive HIV 1&2 Antibody Screen HIV P24 Antigen Labs noted: hyperglycemia r/t dmt2 Assessment: 06/07/17 13:37 Withdrawal symptoms c/o acute chest pain Plan: Continue detox Acute chest pain: transfer to ER for further evaluation. Business Professor spoke with Dr. Kwaku Crain at [facility] regarding this patient.
--- NOTE | 2017-06-07 14:01 | EKG ---
Test Reason : Blood Pressure : / mmHG Vent. Rate : 069 BPM Atrial Rate : 069 BPM P-R Int : 164 ms QRS Dur : 084 ms QT Int : 396 ms P-R-T Axes : 063 070 046 degrees QTc Int : 424 ms NORMAL SINUS RHYTHM WHEN COMPARED WITH ECG OF 28-SEP-2016 16:55, NONSPECIFIC T WAVE ABNORMALITY NO LONGER EVIDENT IN LATERAL LEADS Confirmed by GINO DAVILA MD ([id number]) on 06/07/2017 2:00:56 PM Referred By: Confirmed By:GINO DAVILA MD
[2017-06-07] MEDS: THIAMINE HCL 100 MG TABLET (FP) PO SCH (22:15)
[2017-06-07] MEDS: INSULIN DETEMIR 100 UNITS/ML MDV SQ SCH (22:16)
[2017-06-07] MEDS: QUEtiapine FUMARATE 50 MG TABLET PO SCH (22:16)
[2017-06-08] MEDS: metFORMIN HCL 500 MG TABLET (FP) PO SCH ×2 (06:09→16:38)
[2017-06-08] MEDS ORDERED: INSULIN (NOVOLOG) ASPART 100 UNITS/ML 10ML VIAL ONE ×3 (06:11→16:28)
[2017-06-08] MEDS: INSULIN SLIDING SCALE (NOVOLOG) 1 VIAL SQ SCH ×3 (06:11→16:38)
[2017-06-08] MEDS ORDERED: METHADONE HCL 5 MG TABLET (FOR DETOX USE ONLY) PO ONE (10:00)
[2017-06-08] MEDS: ASPIRIN 81 MG CHEWABLE TABLETS PO SCH (10:11)
[2017-06-08] MEDS: diazePAM 5 MG TABLET PO PRN (10:11)
[2017-06-08] MEDS: PRENATAL VITAMINS W/ FOLIC ACID TABLET (FP) PO SCH (10:11)
[2017-06-08] MEDS: CEPHALEXIN MONOHYDRATE 500 MG CAPSULE (UD) PO SCH ×2 (10:11→22:07)
[2017-06-08] MEDS: NICOTINE 14 MG/24 HOURS TOPICAL PATCH TD SCH (10:12)
[2017-06-08] MEDS ORDERED: FLU VACCINE QUAD 60 MCG/0.5 ML (MDV 17-18) IM ONE (12:00)
[2017-06-08] MEDS ORDERED: ONDANSETRON *ODT* 4 MG TABLET SL PRN (14:24)
--- NOTE | 2017-06-08 14:27 | PN ---
S COWS - Scale Resting Pulse: 0= [place] 80 or Below Sweatin= Chills/Flushing Restless Observation: 1= Difficult to Sit Still Pupil Size: 0= Normal to Room Light Bone or Joint Aches: 2= Severe Diffuse Aches Runny Nose/ Eye Tearin= None GI Upset > 30mins: 2= Nausea/Diarrhea Tremor Observation of Outstretched Hands: 2= Slight Tremor Visible Yawning Observation: 1= 1-2x During Session Anxiety or Irritability: 2=Irritable/Anxious Goose Flesh Skin: 3=Piloerection COWS Score: 14 BHS Progress Note (SOAP) Subjective: Nausea, Diarrhea, Sweating, Tremors, Body Aches. Objective: PT. A & O X 3, OBSERVED AMBULATING ON UNIT. NO ACUTE DISTRESS. 06/08/17 14:25 Vital Signs Temperature 98.5 F 06/08/17 13:17 Pulse Rate 80 06/08/17 13:17 Respiratory Rate 18 06/08/17 13:17 Blood Pressure 118/80 06/08/17 13:17 O2 Sat by Pulse Oximetry (%) Laboratory Tests 06/06/17 06/06/17 06/06/17 12:55 15:15 15:40 WBC RBC Hgb Hct MCV MCH MCHC RDW Plt Count MPV Sodium Potassium Chloride Carbon Dioxide Anion Gap BUN Creatinine Creat Clearance w eGFR POC Glucometer 315 Random Glucose Calcium Total Bilirubin AST ALT Alkaline Phosphatase Total Protein Albumin Urine Color Urine Appearance Urine pH Ur Specific [place] Urine Protein Urine Glucose (UA) Urine Ketones Urine Blood Urine Nitrite Urine Bilirubin Urine Urobilinogen Ur Leukocyte Esterase RPR Titer Hepatitis C Antibody >11.0 H HIV 1&2 Antibody Screen Negative HIV P24 Antigen Negative 06/06/17 06/06/17 06/06/17 17:21 20:07 23:03 WBC RBC Hgb Hct MCV MCH MCHC RDW Plt Count MPV Sodium Potassium Chloride Carbon Dioxide Anion Gap BUN Creatinine Creat Clearance w eGFR POC Glucometer 339 227 Random Glucose Calcium Total Bilirubin AST ALT Alkaline Phosphatase Total Protein Albumin Urine Color Ltyellow Urine Appearance Clear Urine pH 5.0 D Ur Specific [place] 1.031 Urine Protein Negative Urine Glucose (UA) 3+ H Urine Ketones Negative Urine Blood Negative Urine Nitrite Negative Urine Bilirubin Negative Urine Urobilinogen Negative Ur Leukocyte Esterase Negative RPR Titer Hepatitis C Antibody HIV 1&2 Antibody Screen HIV P24 Antigen 12/22/17 12/22/17 12/22/17 05:48 06:00 06:00 WBC 10.0 D RBC 5.57 Hgb 15.9 Hct 48.4 MCV 87.0 MCH 28.7 MCHC 32.9 RDW 14.5 Plt Count 167 D MPV 11.7 H Sodium 134 L Potassium 4.4 D Chloride 100 Carbon Dioxide 27 Anion Gap 7 L BUN 15 D Creatinine 0.8 Creat Clearance w eGFR > 60 POC Glucometer 256 Random Glucose 353 H* D Calcium 9.0 Total Bilirubin 0.4 AST 22 D ALT 30 D Alkaline Phosphatase 159 H Total Protein 7.6 Albumin 3.8 Urine Color Urine Appearance Urine pH Ur Specific [place] Urine Protein Urine Glucose (UA) Urine Ketones Urine Blood Urine Nitrite Urine Bilirubin Urine Urobilinogen Ur Leukocyte Esterase RPR Titer Hepatitis C Antibody HIV 1&2 Antibody Screen HIV P24 Antigen 06/07/17 06/07/17 06/08/17 06:00 21:38 06:08 WBC RBC Hgb Hct MCV MCH MCHC RDW Plt Count MPV Sodium Potassium Chloride Carbon Dioxide Anion Gap BUN Creatinine Creat Clearance w eGFR POC Glucometer 243 181 Random Glucose Calcium Total Bilirubin AST ALT Alkaline Phosphatase Total Protein Albumin Urine Color Urine Appearance Urine pH Ur Specific [place] Urine Protein Urine Glucose (UA) Urine Ketones Urine Blood Urine Nitrite Urine Bilirubin Urine Urobilinogen Ur Leukocyte Esterase RPR Titer Nonreactive Hepatitis C Antibody HIV 1&2 Antibody Screen HIV P24 Antigen 06/08/17 11:39 WBC RBC Hgb Hct MCV MCH MCHC RDW Plt Count MPV Sodium Potassium Chloride Carbon Dioxide Anion Gap BUN Creatinine Creat Clearance w eGFR POC Glucometer 317 Random Glucose Calcium Total Bilirubin AST ALT Alkaline Phosphatase Total Protein Albumin Urine Color Urine Appearance Urine pH Ur Specific [place] Urine Protein Urine Glucose (UA) Urine Ketones Urine Blood Urine Nitrite Urine Bilirubin Urine Urobilinogen Ur Leukocyte Esterase RPR Titer Hepatitis C Antibody HIV 1&2 Antibody Screen HIV P24 Antigen LABS NOTED. Assessment: 06/08/17 14:25 WITHDRAWAL SYMPTOMS. Plan: CONTINUE DETOX. INCREASE DAILY PO FLUID INTAKE./ PRN ZOFRAN SL FOR NAUSEA. PRN IMMODIUM FOR DIARRHEA. PATIENT MADE AWARE OF POSITIVE HCV AB LAB RESULT DRAWN ON ADMISSION. PATIENT ADVISED TO SEE CRAFT SUPERINTENDENT AT [facility] ([place], [place] AFTER DISCHARGE FROM FOR DETOX FOR FURTHER MEDICAL EVALUATION. PATIENT OFFERED OPPORTUNITY TO ASK QUESTIONS REGARDING RESULT. COPY OF POSITIVE HCV AB LAB RESULT GIVEN TO PATIENT.
[2017-06-08] MEDS: THIAMINE HCL 100 MG TABLET (FP) PO SCH (22:07)
[2017-06-08] MEDS: INSULIN DETEMIR 100 UNITS/ML MDV SQ SCH (22:08)
[2017-06-08] MEDS: QUEtiapine FUMARATE 50 MG TABLET PO SCH (22:08)
[2017-06-09] MEDS: LOPERAMIDE HCL 2 MG CAPSULE PO PRN (03:07)
[2017-06-09] MEDS ORDERED: INSULIN (NOVOLOG) ASPART 100 UNITS/ML 10ML VIAL ONE ×3 (06:53→16:38)
[2017-06-09] MEDS: INSULIN SLIDING SCALE (NOVOLOG) 1 VIAL SQ SCH ×3 (06:53→17:08)
[2017-06-09] MEDS: metFORMIN HCL 500 MG TABLET (FP) PO SCH ×2 (06:55→17:07)
[2017-06-09] MEDS ORDERED: METHADONE HCL 5 MG TABLET (FOR DETOX USE ONLY) PO ONE (10:00)
[2017-06-09] MEDS: ASPIRIN 81 MG CHEWABLE TABLETS PO SCH (10:19)
[2017-06-09] MEDS: NICOTINE 14 MG/24 HOURS TOPICAL PATCH TD SCH (10:19)
[2017-06-09] MEDS: CEPHALEXIN MONOHYDRATE 500 MG CAPSULE (UD) PO SCH ×2 (10:19→22:14)
[2017-06-09] MEDS: PRENATAL VITAMINS W/ FOLIC ACID TABLET (FP) PO SCH (10:19)
--- NOTE | 2017-06-09 13:03 | PN ---
S Progress Note (SOAP) Subjective: Headache, diarrhea, sweating; c/o bleeding hemorrhoid and requesting medication Objective: 06/09/17 12:53 Last Vital Signs Temp Pulse Resp BP Pulse Ox 99.3 F 81 17 128/86 06/09/17 09:34 06/09/17 09:34 06/09/17 09:34 06/09/17 09:34 Laboratory Tests 06/06/17 06/06/17 06/06/17 12:55 15:15 15:40 WBC RBC Hgb Hct MCV MCH MCHC RDW Plt Count MPV Sodium Potassium Chloride Carbon Dioxide Anion Gap BUN Creatinine Creat Clearance w eGFR POC Glucometer 315 Random Glucose Calcium Total Bilirubin AST ALT Alkaline Phosphatase Total Protein Albumin Urine Color Urine Appearance Urine pH Ur Specific [place] Urine Protein Urine Glucose (UA) Urine Ketones Urine Blood Urine Nitrite Urine Bilirubin Urine Urobilinogen Ur Leukocyte Esterase RPR Titer Hepatitis C Antibody >11.0 H HIV 1&2 Antibody Screen Negative HIV P24 Antigen Negative 06/06/17 06/06/17 06/06/17 17:21 20:07 23:03 WBC RBC Hgb Hct MCV MCH MCHC RDW Plt Count MPV Sodium Potassium Chloride Carbon Dioxide Anion Gap BUN Creatinine Creat Clearance w eGFR POC Glucometer 339 227 Random Glucose Calcium Total Bilirubin AST ALT Alkaline Phosphatase Total Protein Albumin Urine Color Ltyellow Urine Appearance Clear Urine pH 5.0 D Ur Specific [place] 1.031 Urine Protein Negative Urine Glucose (UA) 3+ H Urine Ketones Negative Urine Blood Negative Urine Nitrite Negative Urine Bilirubin Negative Urine Urobilinogen Negative Ur Leukocyte Esterase Negative RPR Titer Hepatitis C Antibody HIV 1&2 Antibody Screen HIV P24 Antigen 06/07/17 06/07/17 06/07/17 05:48 06:00 06:00 WBC 10.0 D RBC 5.57 Hgb 15.9 Hct 48.4 MCV 87.0 MCH 28.7 MCHC 32.9 RDW 14.5 Plt Count 167 D MPV 11.7 H Sodium 134 L Potassium 4.4 D Chloride 100 Carbon Dioxide 27 Anion Gap 7 L BUN 15 D Creatinine 0.8 Creat Clearance w eGFR > 60 POC Glucometer 256 Random Glucose 353 H* D Calcium 9.0 Total Bilirubin 0.4 AST 22 D ALT 30 D Alkaline Phosphatase 159 H Total Protein 7.6 Albumin 3.8 Urine Color Urine Appearance Urine pH Ur Specific [place] Urine Protein Urine Glucose (UA) Urine Ketones Urine Blood Urine Nitrite Urine Bilirubin Urine Urobilinogen Ur Leukocyte Esterase RPR Titer Hepatitis C Antibody HIV 1&2 Antibody Screen HIV P24 Antigen 06/07/17 06/07/17 06/08/17 06:00 21:38 06:08 WBC RBC Hgb Hct MCV MCH MCHC RDW Plt Count MPV Sodium Potassium Chloride Carbon Dioxide Anion Gap BUN Creatinine Creat Clearance w eGFR POC Glucometer 243 181 Random Glucose Calcium Total Bilirubin AST ALT Alkaline Phosphatase Total Protein Albumin Urine Color Urine Appearance Urine pH Ur Specific [place] Urine Protein Urine Glucose (UA) Urine Ketones Urine Blood Urine Nitrite Urine Bilirubin Urine Urobilinogen Ur Leukocyte Esterase RPR Titer Nonreactive Hepatitis C Antibody HIV 1&2 Antibody Screen HIV P24 Antigen 06/08/17 06/08/17 06/08/17 11:39 15:55 20:48 WBC RBC Hgb Hct MCV MCH MCHC RDW Plt Count MPV Sodium Potassium Chloride Carbon Dioxide Anion Gap BUN Creatinine Creat Clearance w eGFR POC Glucometer 317 274 153 Random Glucose Calcium Total Bilirubin AST ALT Alkaline Phosphatase Total Protein Albumin Urine Color Urine Appearance Urine pH Ur Specific [place] Urine Protein Urine Glucose (UA) Urine Ketones Urine Blood Urine Nitrite Urine Bilirubin Urine Urobilinogen Ur Leukocyte Esterase RPR Titer Hepatitis C Antibody HIV 1&2 Antibody Screen HIV P24 Antigen 06/09/17 06/09/17 05:25 10:24 WBC RBC Hgb Hct MCV MCH MCHC RDW Plt Count MPV Sodium Potassium Chloride Carbon Dioxide Anion Gap BUN Creatinine Creat Clearance w eGFR POC Glucometer 227 301 Random Glucose Calcium Total Bilirubin AST ALT Alkaline Phosphatase Total Protein Albumin Urine Color Urine Appearance Urine pH Ur Specific [place] Urine Protein Urine Glucose (UA) Urine Ketones Urine Blood Urine Nitrite Urine Bilirubin Urine Urobilinogen Ur Leukocyte Esterase RPR Titer Hepatitis C Antibody HIV 1&2 Antibody Screen HIV P24 Antigen Labs noted: hyperglycemia noted due to hyperglycemia Assessment: 06/09/17 12:55 Withdrawal symptoms Noted with hyperglycemia Plan: Continue detox Encouraged to drink lots of water Hemorrhoid, chronic: hydrocortisone cream 2.5% bid Hyperglycemia secondary to DMT2: continue diabetic regimen, encouraged adherence to diabetic diet
[2017-06-09] MEDS: INSULIN DETEMIR 100 UNITS/ML MDV SQ SCH (21:53)
[2017-06-09] MEDS: THIAMINE HCL 100 MG TABLET (FP) PO SCH (22:14)
[2017-06-09] MEDS: QUEtiapine FUMARATE 50 MG TABLET PO SCH (22:14)
[2017-06-09] MEDS: HYDROCORTISONE 2.5% TOPICAL CREAM 30 GM TUBE PR SCH (22:15)
[2017-06-10] MEDS: LOPERAMIDE HCL 2 MG CAPSULE PO PRN ×2 (04:03→14:16)
[2017-06-10] MEDS: INSULIN SLIDING SCALE (NOVOLOG) 1 VIAL SQ SCH ×3 (06:49→17:30)
[2017-06-10] MEDS ORDERED: INSULIN (NOVOLOG) ASPART 100 UNITS/ML 10ML VIAL ONE ×2 (06:49→16:54)
[2017-06-10] MEDS: metFORMIN HCL 500 MG TABLET (FP) PO SCH ×2 (06:50→17:30)
[2017-06-10] MEDS ORDERED: METHADONE HCL 10 MG TABLET (FOR DETOX USE ONLY) PO ONE (10:00)
[2017-06-10] MEDS: HYDROCORTISONE 2.5% TOPICAL CREAM 30 GM TUBE PR SCH ×3 (10:15→22:30)
[2017-06-10] MEDS: PRENATAL VITAMINS W/ FOLIC ACID TABLET (FP) PO SCH (10:15)
[2017-06-10] MEDS: CEPHALEXIN MONOHYDRATE 500 MG CAPSULE (UD) PO SCH ×2 (10:15→22:30)
[2017-06-10] MEDS: ASPIRIN 81 MG CHEWABLE TABLETS PO SCH (10:15)
[2017-06-10] MEDS: NICOTINE 14 MG/24 HOURS TOPICAL PATCH TD SCH (10:15)
--- NOTE | 2017-06-10 13:20 | PN ---
S Progress Note (SOAP) Subjective: Stomach ache, poor appetite, diarrhea. Patient is scheduled for discharge home tomorrow. Objective: 06/10/17 13:18 Last Vital Signs Temp Pulse Resp BP Pulse Ox 97.6 F 81 18 146/94 06/10/17 06:20 06/10/17 09:13 06/10/17 09:13 06/10/17 09:13 Elevated b/p most likely due to anxiety Laboratory Tests 06/06/17 06/06/17 06/06/17 12:55 15:15 15:40 WBC RBC Hgb Hct MCV MCH MCHC RDW Plt Count MPV Sodium Potassium Chloride Carbon Dioxide Anion Gap BUN Creatinine Creat Clearance w eGFR POC Glucometer 315 Random Glucose Calcium Total Bilirubin AST ALT Alkaline Phosphatase Total Protein Albumin Urine Color Urine Appearance Urine pH Ur Specific [place] Urine Protein Urine Glucose (UA) Urine Ketones Urine Blood Urine Nitrite Urine Bilirubin Urine Urobilinogen Ur Leukocyte Esterase RPR Titer Hepatitis C Antibody >11.0 H HIV 1&2 Antibody Screen Negative HIV P24 Antigen Negative 06/06/17 06/06/17 06/06/17 17:21 20:07 23:03 WBC RBC Hgb Hct MCV MCH MCHC RDW Plt Count MPV Sodium Potassium Chloride Carbon Dioxide Anion Gap BUN Creatinine Creat Clearance w eGFR POC Glucometer 339 227 Random Glucose Calcium Total Bilirubin AST ALT Alkaline Phosphatase Total Protein Albumin Urine Color Ltyellow Urine Appearance Clear Urine pH 5.0 D Ur Specific [place] 1.031 Urine Protein Negative Urine Glucose (UA) 3+ H Urine Ketones Negative Urine Blood Negative Urine Nitrite Negative Urine Bilirubin Negative Urine Urobilinogen Negative Ur Leukocyte Esterase Negative RPR Titer Hepatitis C Antibody HIV 1&2 Antibody Screen HIV P24 Antigen 06/07/17 06/07/17 06/07/17 05:48 06:00 06:00 WBC 10.0 D RBC 5.57 Hgb 15.9 Hct 48.4 MCV 87.0 MCH 28.7 MCHC 32.9 RDW 14.5 Plt Count 167 D MPV 11.7 H Sodium 134 L Potassium 4.4 D Chloride 100 Carbon Dioxide 27 Anion Gap 7 L BUN 15 D Creatinine 0.8 Creat Clearance w eGFR > 60 POC Glucometer 256 Random Glucose 353 H* D Calcium 9.0 Total Bilirubin 0.4 AST 22 D ALT 30 D Alkaline Phosphatase 159 H Total Protein 7.6 Albumin 3.8 Urine Color Urine Appearance Urine pH Ur Specific [place] Urine Protein Urine Glucose (UA) Urine Ketones Urine Blood Urine Nitrite Urine Bilirubin Urine Urobilinogen Ur Leukocyte Esterase RPR Titer Hepatitis C Antibody HIV 1&2 Antibody Screen HIV P24 Antigen 06/07/17 06/07/17 06/08/17 06:00 21:38 06:08 WBC RBC Hgb Hct MCV MCH MCHC RDW Plt Count MPV Sodium Potassium Chloride Carbon Dioxide Anion Gap BUN Creatinine Creat Clearance w eGFR POC Glucometer 243 181 Random Glucose Calcium Total Bilirubin AST ALT Alkaline Phosphatase Total Protein Albumin Urine Color Urine Appearance Urine pH Ur Specific [place] Urine Protein Urine Glucose (UA) Urine Ketones Urine Blood Urine Nitrite Urine Bilirubin Urine Urobilinogen Ur Leukocyte Esterase RPR Titer Nonreactive Hepatitis C Antibody HIV 1&2 Antibody Screen HIV P24 Antigen 06/08/17 06/08/17 06/08/17 11:39 15:55 20:48 WBC RBC Hgb Hct MCV MCH MCHC RDW Plt Count MPV Sodium Potassium Chloride Carbon Dioxide Anion Gap BUN Creatinine Creat Clearance w eGFR POC Glucometer 317 274 153 Random Glucose Calcium Total Bilirubin AST ALT Alkaline Phosphatase Total Protein Albumin Urine Color Urine Appearance Urine pH Ur Specific [place] Urine Protein Urine Glucose (UA) Urine Ketones Urine Blood Urine Nitrite Urine Bilirubin Urine Urobilinogen Ur Leukocyte Esterase RPR Titer Hepatitis C Antibody HIV 1&2 Antibody Screen HIV P24 Antigen 06/09/17 06/09/17 06/09/17 05:25 10:24 16:22 WBC RBC Hgb Hct MCV MCH MCHC RDW Plt Count MPV Sodium Potassium Chloride Carbon Dioxide Anion Gap BUN Creatinine Creat Clearance w eGFR POC Glucometer 227 301 249 Random Glucose Calcium Total Bilirubin AST ALT Alkaline Phosphatase Total Protein Albumin Urine Color Urine Appearance Urine pH Ur Specific [place] Urine Protein Urine Glucose (UA) Urine Ketones Urine Blood Urine Nitrite Urine Bilirubin Urine Urobilinogen Ur Leukocyte Esterase RPR Titer Hepatitis C Antibody HIV 1&2 Antibody Screen HIV P24 Antigen 06/09/17 06/10/17 21:51 05:48 WBC RBC Hgb Hct MCV MCH MCHC RDW Plt Count MPV Sodium Potassium Chloride Carbon Dioxide Anion Gap BUN Creatinine Creat Clearance w eGFR POC Glucometer 231 204 Random Glucose Calcium Total Bilirubin AST ALT Alkaline Phosphatase Total Protein Albumin Urine Color Urine Appearance Urine pH Ur Specific [place] Urine Protein Urine Glucose (UA) Urine Ketones Urine Blood Urine Nitrite Urine Bilirubin Urine Urobilinogen Ur Leukocyte Esterase RPR Titer Hepatitis C Antibody HIV 1&2 Antibody Screen HIV P24 Antigen Labs noted: hyperglycemia r/t DMT2 Assessment: 06/10/17 13:18 Withdrawal symptoms C/O GERD, noted with hyperglycemia and elevated b/p r/t anxiety Plan: Continue detox Encouraged to drink lots of water GERD: start protonix 40mg PO BID, continue maalox prn Hyperglycemia secondary to DMT2: continue present regimen, encouraged adherence to diabetic diet Elevated b/p secondary to anxiety: encouraged relaxation techniques (deep breathing exercises, socializing with peers/staff, watching TV etc., start clonidine 0.1mg PO q8hr prn if b/p > 140/90
[2017-06-10] MEDS ORDERED: cloNIDine HCL 0.1 MG TABLET PO PRN (13:45)
[2017-06-10] MEDS: PANTOPRAZOLE 40 MG TABLET (FP) PO SCH ×2 (15:09→22:31)
[2017-06-10] MEDS: INSULIN DETEMIR 100 UNITS/ML MDV SQ SCH (21:30)
[2017-06-10] MEDS: THIAMINE HCL 100 MG TABLET (FP) PO SCH (22:31)
[2017-06-10] MEDS: QUEtiapine FUMARATE 50 MG TABLET PO SCH (22:31)
[2017-06-11] MEDS ORDERED: METHADONE HCL 5 MG TABLET (FOR DETOX USE ONLY) PO ONE (06:00)
[2017-06-11] MEDS ORDERED: INSULIN (NOVOLOG) ASPART 100 UNITS/ML 10ML VIAL ONE ×2 (08:10→11:22)
[2017-06-11] MEDS: metFORMIN HCL 500 MG TABLET (FP) PO SCH ×2 (08:12→16:49)
[2017-06-11] MEDS: INSULIN SLIDING SCALE (NOVOLOG) 1 VIAL SQ SCH ×3 (08:12→16:50)
[2017-06-11] MEDS: PRENATAL VITAMINS W/ FOLIC ACID TABLET (FP) PO SCH (10:23)
[2017-06-11] MEDS: ASPIRIN 81 MG CHEWABLE TABLETS PO SCH (10:23)
[2017-06-11] MEDS: NICOTINE 14 MG/24 HOURS TOPICAL PATCH TD SCH (10:23)
[2017-06-11] MEDS: PANTOPRAZOLE 40 MG TABLET (FP) PO SCH ×2 (10:23→21:24)
[2017-06-11] MEDS: CEPHALEXIN MONOHYDRATE 500 MG CAPSULE (UD) PO SCH ×2 (10:23→21:23)
[2017-06-11] MEDS: HYDROCORTISONE 2.5% TOPICAL CREAM 30 GM TUBE PR SCH ×2 (10:25→21:25)
--- NOTE | 2017-06-11 11:51 | DS ---
[facility] Detox Discharge Summary Admission Date: 06/06/17 Discharge Date: 06/11/17 - History Present History: Alcohol Dependence, Opioid Dependence Additional Comments: DETOX COMPLETED. Pertinent Past History: SEE DX BELOW - Physical Exam Results Vital Signs: Vital Signs Temperature 97.1 F L 06/11/17 09:01 Pulse Rate 90 06/11/17 09:01 Respiratory Rate 18 06/11/17 09:01 Blood Pressure 131/92 06/11/17 09:01 O2 Sat by Pulse Oximetry (%) Pertinent Admission Physical Exam Findings: WITHDRAWAL SX Laboratory Last Values WBC 10.0 K/mm3 (4.0-10.0) D 06/07/17 06:00 RBC 5.57 M/mm3 (4.00-5.60) 06/07/17 06:00 Hgb 15.9 GM/dL (11.7-16.9) 06/07/17 06:00 Hct 48.4 % (35.4-49) 06/07/17 06:00 MCV 87.0 fl (80-96) 06/07/17 06:00 MCH 28.7 pg (25.7-33.7) 06/07/17 06:00 MCHC 32.9 g/dl (32.0-35.9) 06/07/17 06:00 RDW 14.5 % (11.9-15.9) 06/07/17 06:00 Plt Count 167 K/MM3 (134-434) D 06/07/17 06:00 MPV 11.7 fl (7.5-11.1) H 06/07/17 06:00 Sodium 134 mmol/L (136-145) L 06/07/17 06:00 Potassium 4.4 mmol/L (3.5-5.1) D 06/07/17 06:00 Chloride 100 mmol/L (98-107) 06/07/17 06:00 Carbon Dioxide 27 mmol/L (21-32) 06/07/17 06:00 Anion Gap 7 (8-16) L 06/07/17 06:00 BUN 15 mg/dL (7-18) D 06/07/17 06:00 Creatinine 0.8 mg/dL (0.7-1.3) 06/07/17 06:00 Creat Clearance w eGFR > 60 (>60) 06/07/17 06:00 POC Glucometer 152 UNITS (80-120) 06/11/17 04:58 Random Glucose 353 mg/dL (74-106) H* D 06/07/17 06:00 Calcium 9.0 mg/dL (8.5-10.1) 06/07/17 06:00 Total Bilirubin 0.4 mg/dL (0.2-1.0) 06/07/17 06:00 AST 22 U/L (15-37) D 06/07/17 06:00 ALT 30 U/L (12-78) D 06/07/17 06:00 Alkaline Phosphatase 159 U/L (45-117) H 06/07/17 06:00 Total Protein 7.6 g/dl (6.4-8.2) 06/07/17 06:00 Albumin 3.8 g/dl (3.4-5.0) 06/07/17 06:00 Urine Color Ltyellow 06/06/17 20:07 Urine Appearance Clear 06/06/17 20:07 Urine pH 5.0 (5.0-8.0) D 06/06/17 20:07 Ur Specific [place] 1.031 (1.001-1.035) 06/06/17 20:07 Urine Protein Negative (NEGATIVE) 06/06/17 20:07 Urine Glucose (UA) 3+ (NEGATIVE) H 06/06/17 20:07 Urine Ketones Negative (NEGATIVE) 06/06/17 20:07 Urine Blood Negative (NEGATIVE) 06/06/17 20:07 Urine Nitrite Negative (NEGATIVE) 06/06/17 20:07 Urine Bilirubin Negative (NEGATIVE) 06/06/17 20:07 Urine Urobilinogen Negative mg/dL (0.2-1.0) 06/06/17 20:07 Ur Leukocyte Esterase Negative (NEGATIVE) 06/06/17 20:07 RPR Titer Nonreactive (NONREACTIVE) 06/07/17 06:00 Hepatitis C Antibody >11.0 s/co ratio (0.0-0.9) H 06/06/17 15:40 HIV 1&2 Antibody Screen Negative 06/06/17 15:15 HIV P24 Antigen Negative 06/06/17 15:15 - Treatment Hospital Course: Detox Protocol Followed, Detoxed Safely, Responded well, Discharged Condition Good, Rehab Referral Accepted Patient has Accepted a Rehab Referral to: REHAB - Medication Discharge Medications: Ambulatory Orders Ibuprofen [Motrin -] 600 mg PO BID PRN 08/27/14 Aspirin [ASA -] 81 mg PO DAILY 09/28/16 Insulin (Novolog) [Novolog Flexpen -] 10 units SQ TID 09/28/16 Metformin HCl [Glucophage -] 1,000 mg PO BID 09/28/16 Insulin Glargine,Hum.rec.anlog [Lantus Solostar PEN (NF)] 20 units SQ HS - Diagnosis (1) Opioid dependence with withdrawal Status: Acute (2) Nicotine dependence Status: Acute Qualifiers: Nicotine product type: cigarettes Substance use status: in withdrawal Qualified Code(s): F17.213 - Nicotine dependence, cigarettes, with withdrawal (3) Type 2 diabetes mellitus Status: Chronic Qualifiers: Diabetes mellitus complication status: without complication Diabetes mellitus exterminator insulin use: with skilled nursing use Qualified Code(s): E11.9 - Type 2 diabetes mellitus without complications; Z79.4 - roasterman (current) use of insulin; Z79.4 - half-way (current) use of insulin; Z79.4 - roasterman ( current) use of insulin; Z79.4 - roasterman (current) use of insulin (4) Chronic low back pain Status: Chronic Qualifiers: Back pain laterality: unspecified Sciatica presence: unspecified whether sciatica present Qualified Code(s): M54.5 - Low back pain; G89.29 - Other chronic pain; G89.29 - Other chronic pain (5) Obesity Status: Chronic - AMA Did Patient Leave Against Medical Advice: No
--- NOTE | 2017-06-11 15:30 | HP ---
[facility] Rehab Assess/Revision - Admission History Admitted to Rehab from: [facility] Date of Admission to Rehab: 06/11/2017 - Vital signs Vital Signs: Vital Signs Period Temp Pulse Resp BP Sys/Forman Pulse Ox Last 24 Hr 96.7 F-98.2 F 71-92 16-18 112-140/69-92 - Findings Detox History & Physical reviewed: Yes Concur with findings: Yes Inpatient Rehab Admission - Initial Determination Are CD services needed?: Yes Free of communicable disease: Yes Not in need of hospitalization: Yes - Rehab Admission Criteria Comorbidities: Yes Lacks judgement: Yes Patient is meeting Inpatient Rehab admission criteria:: Yes
[2017-06-11] MEDS: THIAMINE HCL 100 MG TABLET (FP) PO SCH (21:23)
[2017-06-11] MEDS: INSULIN DETEMIR 100 UNITS/ML MDV SQ SCH (21:24)
[2017-06-11] MEDS: QUEtiapine FUMARATE 50 MG TABLET PO SCH (21:24)
[2017-06-12] MEDS: INSULIN SLIDING SCALE (NOVOLOG) 1 VIAL SQ SCH ×3 (07:18→17:08)
[2017-06-12] MEDS: metFORMIN HCL 500 MG TABLET (FP) PO SCH ×2 (07:18→17:08)
[2017-06-12] MEDS ORDERED: INSULIN (NOVOLOG) ASPART 100 UNITS/ML 10ML VIAL ONE ×2 (07:24→17:14)
[2017-06-12] MEDS: NICOTINE 14 MG/24 HOURS TOPICAL PATCH TD SCH (10:04)
[2017-06-12] MEDS: PRENATAL VITAMINS W/ FOLIC ACID TABLET (FP) PO SCH (10:04)
[2017-06-12] MEDS: ASPIRIN 81 MG CHEWABLE TABLETS PO SCH (10:04)
[2017-06-12] MEDS: CEPHALEXIN MONOHYDRATE 500 MG CAPSULE (UD) PO SCH ×2 (10:04→21:23)
[2017-06-12] MEDS: PANTOPRAZOLE 40 MG TABLET (FP) PO SCH (10:04)
[2017-06-12] MEDS: HYDROCORTISONE 2.5% TOPICAL CREAM 30 GM TUBE PR SCH ×2 (10:05→21:25)
--- NOTE | 2017-06-12 13:21 | PN ---
[facility] Progress Note Note: patient was approached twice this am and asked to come for evaluation, patient was in bed turning away, reported he has not been feeling well today and does not know he he stays in the treatment, assessment postponed for the time when patient feels better.
--- NOTE | 2017-06-12 17:07 | PN ---
[facility] Progress Note (SOAP) Subjective: c/o protracted withdrawal , body aches, would like to start MAT with suboxone, Objective: 06/12/17 17:06 Vital Signs - 8 hr 06/12/17 10:00 Pulse Rate 86 Blood Pressure 143/91 Laboratory Tests 06/06/17 06/06/17 06/06/17 12:55 15:15 15:40 WBC RBC Hgb Hct MCV MCH MCHC RDW Plt Count MPV Sodium Potassium Chloride Carbon Dioxide Anion Gap BUN Creatinine Creat Clearance w eGFR POC Glucometer 315 Random Glucose Calcium Total Bilirubin AST ALT Alkaline Phosphatase Total Protein Albumin Urine Color Urine Appearance Urine pH Ur Specific [place] Urine Protein Urine Glucose (UA) Urine Ketones Urine Blood Urine Nitrite Urine Bilirubin Urine Urobilinogen Ur Leukocyte Esterase RPR Titer Hepatitis C Antibody >11.0 H HIV 1&2 Antibody Screen Negative HIV P24 Antigen Negative 06/06/17 06/06/17 06/06/17 17:21 20:07 23:03 WBC RBC Hgb Hct MCV MCH MCHC RDW Plt Count MPV Sodium Potassium Chloride Carbon Dioxide Anion Gap BUN Creatinine Creat Clearance w eGFR POC Glucometer 339 227 Random Glucose Calcium Total Bilirubin AST ALT Alkaline Phosphatase Total Protein Albumin Urine Color Ltyellow Urine Appearance Clear Urine pH 5.0 D Ur Specific [place] 1.031 Urine Protein Negative Urine Glucose (UA) 3+ H Urine Ketones Negative Urine Blood Negative Urine Nitrite Negative Urine Bilirubin Negative Urine Urobilinogen Negative Ur Leukocyte Esterase Negative RPR Titer Hepatitis C Antibody HIV 1&2 Antibody Screen HIV P24 Antigen 06/07/17 06/07/17 06/07/17 05:48 06:00 06:00 WBC 10.0 D RBC 5.57 Hgb 15.9 Hct 48.4 MCV 87.0 MCH 28.7 MCHC 32.9 RDW 14.5 Plt Count 167 D MPV 11.7 H Sodium 134 L Potassium 4.4 D Chloride 100 Carbon Dioxide 27 Anion Gap 7 L BUN 15 D Creatinine 0.8 Creat Clearance w eGFR > 60 POC Glucometer 256 Random Glucose 353 H* D Calcium 9.0 Total Bilirubin 0.4 AST 22 D ALT 30 D Alkaline Phosphatase 159 H Total Protein 7.6 Albumin 3.8 Urine Color Urine Appearance Urine pH Ur Specific [place] Urine Protein Urine Glucose (UA) Urine Ketones Urine Blood Urine Nitrite Urine Bilirubin Urine Urobilinogen Ur Leukocyte Esterase RPR Titer Hepatitis C Antibody HIV 1&2 Antibody Screen HIV P24 Antigen 06/07/17 06/07/17 06/08/17 06:00 21:38 06:08 WBC RBC Hgb Hct MCV MCH MCHC RDW Plt Count MPV Sodium Potassium Chloride Carbon Dioxide Anion Gap BUN Creatinine Creat Clearance w eGFR POC Glucometer 243 181 Random Glucose Calcium Total Bilirubin AST ALT Alkaline Phosphatase Total Protein Albumin Urine Color Urine Appearance Urine pH Ur Specific [place] Urine Protein Urine Glucose (UA) Urine Ketones Urine Blood Urine Nitrite Urine Bilirubin Urine Urobilinogen Ur Leukocyte Esterase RPR Titer Nonreactive Hepatitis C Antibody HIV 1&2 Antibody Screen HIV P24 Antigen 06/08/17 06/08/17 06/08/17 11:39 15:55 20:48 WBC RBC Hgb Hct MCV MCH MCHC RDW Plt Count MPV Sodium Potassium Chloride Carbon Dioxide Anion Gap BUN Creatinine Creat Clearance w eGFR POC Glucometer 317 274 153 Random Glucose Calcium Total Bilirubin AST ALT Alkaline Phosphatase Total Protein Albumin Urine Color Urine Appearance Urine pH Ur Specific [place] Urine Protein Urine Glucose (UA) Urine Ketones Urine Blood Urine Nitrite Urine Bilirubin Urine Urobilinogen Ur Leukocyte Esterase RPR Titer Hepatitis C Antibody HIV 1&2 Antibody Screen HIV P24 Antigen 06/09/17 06/09/17 06/09/17 05:25 10:24 16:22 WBC RBC Hgb Hct MCV MCH MCHC RDW Plt Count MPV Sodium Potassium Chloride Carbon Dioxide Anion Gap BUN Creatinine Creat Clearance w eGFR POC Glucometer 227 301 249 Random Glucose Calcium Total Bilirubin AST ALT Alkaline Phosphatase Total Protein Albumin Urine Color Urine Appearance Urine pH Ur Specific [place] Urine Protein Urine Glucose (UA) Urine Ketones Urine Blood Urine Nitrite Urine Bilirubin Urine Urobilinogen Ur Leukocyte Esterase RPR Titer Hepatitis C Antibody HIV 1&2 Antibody Screen HIV P24 Antigen 06/09/17 06/10/17 06/10/17 21:51 05:48 16:16 WBC RBC Hgb Hct MCV MCH MCHC RDW Plt Count MPV Sodium Potassium Chloride Carbon Dioxide Anion Gap BUN Creatinine Creat Clearance w eGFR POC Glucometer 231 204 312 Random Glucose Calcium Total Bilirubin AST ALT Alkaline Phosphatase Total Protein Albumin Urine Color Urine Appearance Urine pH Ur Specific [place] Urine Protein Urine Glucose (UA) Urine Ketones Urine Blood Urine Nitrite Urine Bilirubin Urine Urobilinogen Ur Leukocyte Esterase RPR Titer Hepatitis C Antibody HIV 1&2 Antibody Screen HIV P24 Antigen 06/11/17 06/11/17 06/11/17 04:58 11:19 16:48 WBC RBC Hgb Hct MCV MCH MCHC RDW Plt Count MPV Sodium Potassium Chloride Carbon Dioxide Anion Gap BUN Creatinine Creat Clearance w eGFR POC Glucometer 152 373 263 Random Glucose Calcium Total Bilirubin AST ALT Alkaline Phosphatase Total Protein Albumin Urine Color Urine Appearance Urine pH Ur Specific [place] Urine Protein Urine Glucose (UA) Urine Ketones Urine Blood Urine Nitrite Urine Bilirubin Urine Urobilinogen Ur Leukocyte Esterase RPR Titer Hepatitis C Antibody HIV 1&2 Antibody Screen HIV P24 Antigen 06/11/17 06/12/17 20:37 07:16 WBC RBC Hgb Hct MCV MCH MCHC RDW Plt Count MPV Sodium Potassium Chloride Carbon Dioxide Anion Gap BUN Creatinine Creat Clearance w eGFR POC Glucometer 189 218 Random Glucose Calcium Total Bilirubin AST ALT Alkaline Phosphatase Total Protein Albumin Urine Color Urine Appearance Urine pH Ur Specific [place] Urine Protein Urine Glucose (UA) Urine Ketones Urine Blood Urine Nitrite Urine Bilirubin Urine Urobilinogen Ur Leukocyte Esterase RPR Titer Hepatitis C Antibody HIV 1&2 Antibody Screen HIV P24 Antigen Assessment: 06/12/17 17:06 opioid withdrawal sx w cravings, start suboxone 2mg daily until f/u appt scheduled for aftercare, symptomatic relief of withdrawwl ordered as well. risks of suboxone treatment and benefits discussed with patient
[2017-06-12] MEDS: BUPRENORPHINE/NALOXONE 2 MG/0.5 MG FILM PACKET SL SCH (18:01)
[2017-06-12] MEDS: INSULIN DETEMIR 100 UNITS/ML MDV SQ SCH (21:22)
[2017-06-12] MEDS: NAPROXEN 500 MG TABLET (FP) PO SCH (21:23)
[2017-06-12] MEDS: cloNIDine HCL 0.1 MG TABLET PO SCH (21:23)
[2017-06-12] MEDS: THIAMINE HCL 100 MG TABLET (FP) PO SCH (21:23)
[2017-06-12] MEDS: CYCLOBENZAPRINE HCL 5 MG TABLET PO SCH (21:23)
[2017-06-12] MEDS: QUEtiapine FUMARATE 50 MG TABLET PO SCH (21:23)
[2017-06-13] MEDS: CYCLOBENZAPRINE HCL 5 MG TABLET PO SCH ×3 (06:12→21:10)
[2017-06-13] MEDS: metFORMIN HCL 500 MG TABLET (FP) PO SCH ×2 (06:12→17:00)
[2017-06-13] MEDS: INSULIN SLIDING SCALE (NOVOLOG) 1 VIAL SQ SCH ×3 (06:13→17:01)
[2017-06-13 06:46] VITALS: TEMP 97.9
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
[2017-06-13] MEDS: PANTOPRAZOLE 40 MG TABLET (FP) PO SCH (10:28)
[2017-06-13] MEDS: CEPHALEXIN MONOHYDRATE 500 MG CAPSULE (UD) PO SCH ×2 (10:28→21:10)
[2017-06-13] MEDS: PRENATAL VITAMINS W/ FOLIC ACID TABLET (FP) PO SCH (10:28)
[2017-06-13] MEDS: ASPIRIN 81 MG CHEWABLE TABLETS PO SCH (10:28)
[2017-06-13] MEDS: cloNIDine HCL 0.1 MG TABLET PO SCH ×2 (10:28→21:11)
[2017-06-13] MEDS: NAPROXEN 500 MG TABLET (FP) PO SCH ×2 (10:28→21:10)
[2017-06-13] MEDS: BUPRENORPHINE/NALOXONE 2 MG/0.5 MG FILM PACKET SL SCH (10:28)
[2017-06-13] MEDS: HYDROCORTISONE 2.5% TOPICAL CREAM 30 GM TUBE PR SCH ×2 (10:29→21:14)
[2017-06-13] MEDS: NICOTINE 14 MG/24 HOURS TOPICAL PATCH TD SCH (11:51)
[2017-06-13] MEDS: QUEtiapine FUMARATE 50 MG TABLET PO SCH (21:10)
[2017-06-13] MEDS: THIAMINE HCL 100 MG TABLET (FP) PO SCH (21:11)
[2017-06-13] MEDS: INSULIN DETEMIR 100 UNITS/ML MDV SQ SCH (21:12)
[2017-06-14] MEDS: metFORMIN HCL 500 MG TABLET (FP) PO SCH (06:33)
[2017-06-14] MEDS: CYCLOBENZAPRINE HCL 5 MG TABLET PO SCH (06:33)
[2017-06-14] MEDS: INSULIN SLIDING SCALE (NOVOLOG) 1 VIAL SQ SCH (06:33)
[2017-06-14 06:40] VITALS: BP 148/94; PULSE 84
[2017-06-14] MEDS ORDERED: INSULIN (NOVOLOG) ASPART 100 UNITS/ML 10ML VIAL ONE (06:41)
[2017-06-14] MEDS: PRENATAL VITAMINS W/ FOLIC ACID TABLET (FP) PO SCH (09:55)
[2017-06-14] MEDS: HYDROCORTISONE 2.5% TOPICAL CREAM 30 GM TUBE PR SCH (09:55)
[2017-06-14] MEDS: NICOTINE 14 MG/24 HOURS TOPICAL PATCH TD SCH (09:56)
[2017-06-14] MEDS: PANTOPRAZOLE 40 MG TABLET (FP) PO SCH (09:58)
[2017-06-14] MEDS: ASPIRIN 81 MG CHEWABLE TABLETS PO SCH (09:58)
[2017-06-14] MEDS: NAPROXEN 500 MG TABLET (FP) PO SCH (09:59)
[2017-06-14] MEDS: CEPHALEXIN MONOHYDRATE 500 MG CAPSULE (UD) PO SCH (09:59)
[2017-06-14] MEDS: BUPRENORPHINE/NALOXONE 2 MG/0.5 MG FILM PACKET SL SCH (09:59)
[2017-06-14] MEDS: cloNIDine HCL 0.1 MG TABLET PO SCH (09:59)
--- NOTE | 2017-06-14 11:30 | PN ---
[facility] Progress Note Note: Patient decided to leave treatment AMA, reports he does not want to stay, reports [facility]
== END 2017-06-14 10:15 | disposition left against medical advice (07) | DRG 894 ==
LOC: YASAS 12:19 → Y3N 15:05 → Y5N 06-11 13:57
PROVIDERS: ADMIT Internal Medicine; ATTEND Psychiatry & Neurology Psychiatry
PROC: HZ2ZZZZ Detoxification Services for Substance Abuse Treatment (ICD-10-PCS; principal; 2017-06-06)
PROC: HZ42ZZZ Group Counseling for Substance Abuse Treatment, Cognitive-Behavioral (ICD-10-PCS; 2017-06-11)
DX: F11.23 Opioid dependence with withdrawal (principal); F19.282 Other psychoactive substance dependence with psychoactive substance-induced sleep disorder; F17.213 Nicotine dependence, cigarettes, with withdrawal; F43.10 Post-traumatic stress disorder, unspecified; F19.24 Other psychoactive substance dependence with psychoactive substance-induced mood disorder; I10 Essential (primary) hypertension; E11.65 Type 2 diabetes mellitus with hyperglycemia; M54.5 Low back pain; G89.29 Other chronic pain; B18.2 Chronic viral hepatitis C; Z95.1 Presence of aortocoronary bypass graft; E66.9 Obesity, unspecified; Z68.28 Body mass index [BMI] 28.0-28.9, adult; R76.11 Nonspecific reaction to tuberculin skin test without active tuberculosis; G47.00 Insomnia, unspecified; R07.9 Chest pain, unspecified; K64.8 Other hemorrhoids; K21.9 Gastro-esophageal reflux disease without esophagitis; Z79.4 Long term (current) use of insulin; Z79.84 Long term (current) use of oral hypoglycemic drugs
CPT/HCPCS: 36415; 71020-TC; 80053; 81003; 82550; 83880; 84484; 85025; 85027; 85610; 85730; 86593; 86803; 87389; 90688; 93005; 93010; 99282-25; G0008; J0735

== ENCOUNTER 2017-06-07 11:57 | Emergency (ER) | payer OTHER ==
[2017-06-07 12:05] VITALS: BMI 28.3
[2017-06-07 13:36] LABS: BASO # 0.1 # (0.1-1); BASO % 1.2 % (0-2.0); EOS # 0.2 # (0-4.5); EOS % 3.4 % (0-4.5); LYMPH # 2.6 (8-40); MCH 28.3 pg (25.7-33.7); MCHC 32.9 g/dl (32.0-35.9); MEAN PLT VOLUME 10.2 fl (7.5-11.1); MONO # 0.6 # (3.8-10.2); NEUT # 2.7 # (42.8-82.8); NEUT % 43.5 % (42.8-82.8); PLATELET COUNT 144 K/MM3 (134-434); RDW 14.4 % (11.9-15.9); WHITE BLOOD COUNT 6.2 K/mm3 (4.0-10.0)
[2017-06-07 13:52] LABS: ALBUMIN 3.4 g/dl (3.4-5.0); ALK PHOS 143 U/L (45-117); ANION GAP 9 (8-16); BILIRUBIN,TOTAL 0.2 mg/dL (0.2-1.0); CALCIUM 9.3 mg/dL (8.5-10.1); CO2 30 mmol/L (21-32); CPK 91 IU/L (39-308); CREATININE 0.8 mg/dL (0.7-1.3); GLUCOSE,RANDOM 296 mg/dL (74-106); SGOT/AST 17 U/L (15-37); SGPT/ALT 25 U/L (12-78)
[2017-06-07 13:55] LABS: TROPONIN I < 0.02 ng/ml (0.00-0.05)
[2017-06-07 14:02] LABS: INR 0.95 (0.82-1.09); PROTHROMBIN TIME (PATIENT) 10.7 SEC (9.98-11.88)
--- NOTE | 2017-06-07 14:57 | PDOC ---
History of Present Illness - General Chief Complaint: Chest Pain Stated Complaint: WEAKNESS Time Seen by Provider: 06/07/17 12:11 - History of Present Illness Initial Comments: 06/07/17 14:46 "The patient is a 56 year old male with a significant PMH of diabetes (on metformin and insulin) and PR s/p triple bypass on 12/2015 who was sent by [facility] to the emergency department for evaluation of chest pain. The patient states the chest pain began yesterday after smoking a cigar. The patient describes the chest pain as non-radiating and lasting only a few minutes. The patient reports this chest pain is not similar to his past PR. IT was not associated with SOB or diaphoresis. The patient notes his chest pain has resolved on its own and has no other compliants. He did not wish to come to ER for evaluation of the chest pain but was instructed to do so by the staff at [facility]. He denies any recurrence of the pain since yesterday. The patient denies leg swelling, headache and dizziness. Denies fever, chills, nausea, vomit , diarrhea and constipation. Denies dysuria, frequency, urgency and hematuria. Allergies: NKA Past surgical history: triple bypass (12/2015) Social history: Current smoker (9 cigarettes/day and 4 cigars/day), No reported drug or alcohol use. F[employer] Patterns: Dr. Lenz at [place] " Past History - Past Medical History Allergies/Adverse Reactions: Allergies Allergy/AdvReac Type Severity Reaction Status Date / Time No Known Allergies Allergy Verified 06/07/17 12:07 Home Medications: Ambulatory Orders Ibuprofen [Motrin -] 600 mg PO BID PRN 08/27/14 Aspirin [ASA -] 81 mg PO DAILY 09/28/16 Insulin (Novolog) [Novolog Flexpen -] 10 units SQ TID 09/28/16 Metformin HCl [Glucophage -] 1,000 mg PO BID 09/28/16 Insulin Glargine,Hum.rec.anlog [Lantus Solostar PEN (NF)] 20 units SQ HS Anemia: No Asthma: No Cancer: No Cardiac Disorders: No CVA: No COPD: No CHF: No Dementia: No Diabetes: Yes ([id number]) GI Disorders: No Disorders: No HTN: No Hypercholesterolemia: No Kidney Stones: No Liver Disease: No Seizures: No Thyroid Disease: No - Surgical History Abdominal Surgery: No Appendectomy: No Cardiac Surgery: Yes (triple bypass in 12/2015) Cholecystectomy: No Lung Surgery: No Neurologic Surgery: No Orthopedic Surgery: No - Reproductive History Testicular Surgery: No - Suicide/Smoking/Psychosocial Hx Smoking History: Current every day smoker Have you smoked in the past 12 months: Yes Number of Cigarettes Smoked Daily: 9 If you are a former smoker, when did you quit?: at age 30 Cigars Per Day: 4 Information on smoking cessation initiated: No 'Breaking Loose' booklet given: 06/06/17 Hx Alcohol Use: No Drug/Substance Use Hx: Yes Substance Use Type: Heroin, Opiates Hx Substance Use Treatment: Yes (repeated detox) Cardiac Specific PMH - Complaint Specific PMHX Pacemaker: No Review of Systems - Review of Systems Comments:: 06/07/17 15:05 "GENERAL/CONSTITUTIONAL: No fever or chills. No weakness. HEAD, EYES, EARS, NOSE AND THROAT: No change in vision. No ear pain or discharge. No sore throat. CARDIOVASCULAR: No chest pain or shortness of breath. RESPIRATORY: No cough, wheezing, or hemoptysis. GASTROINTESTINAL: No nausea, vomiting, diarrhea or constipation. GENITOURINARY: No dysuria, frequency, or change in urination. MUSCULOSKELETAL: No joint or muscle swelling or pain. No neck or back pain. SKIN: No rash NEUROLOGIC: No headache, vertigo, loss of consciousness, or change in strength/ sensation. ENDOCRINE: No increased thirst. No abnormal weight change. HEMATOLOGIC/LYMPHATIC: No anemia, easy bleeding, or history of blood clots. ALLERGIC/IMMUNOLOGIC: No hives or skin allergy. " *Physical Exam - Vital Signs Last Vital Signs Temp Pulse Resp BP Pulse Ox 97.8 F 71 18 107/71 99 06/07/17 12:03 06/07/17 12:03 06/07/17 12:03 06/07/17 12:03 06/07/17 12:03 - Physical Exam Comments: 06/07/17 15:05 "GENERAL: Awake, alert, and fully oriented, in no acute distress HEAD: No signs of trauma EYES: PERRLA, EOMI, sclera anicteric, conjunctiva clear ENT: Auricles normal inspection, hearing grossly normal, nares patent, oropharynx clear without exudates. Moist mucosa NECK: Nontender, no stepoffs, Normal ROM, supple, no lymphadenopathy, JVD, or masses LUNGS: Breath sounds equal, clear to auscultation bilaterally. No wheezes, and no crackles HEART: Regular rate and rhythm, normal S1 and S2, no murmurs, rubs or gallops ABDOMEN: Soft, nontender, normoactive bowel sounds. No guarding, no rebound. No masses EXTREMITIES: Normal range of motion, no edema. No clubbing or cyanosis. No cords, erythema, or tenderness NEUROLOGICAL: Cranial nerves II through XII intact. 5/5 strength and sensation in all extremities, Normal speech, normal gait SKIN: Warm, Dry, normal turgor, no rashes or lesions noted. " Heart Score/ECG Review - History History: Slightly suspicious - Electrocardiogram EKG: Normal - Age Age: 45-65 - Risk Factors Risk Factors Heart Score: Yes Hx Hypertension, Yes Hx Diabetes, Yes Smoking History Based on the list above the patient has:: >/=3 risk factors or Hx atherosclerotic disease - Troponin Troponin: </= normal limit - Score Heart Score - Total: 3 - ECG Impressions Comment:: 06/07/17 15:05 NSR, no MICHAEL/STDs, no TWIs, axis wnl, intervals wnl ED Treatment Course - LABORATORY CBC & Chemistry Diagram: 06/07/17 13:14 06/07/17 13:14 - ADDITIONAL ORDERS Additional order review: Laboratory Results 06/07/17 06/07/17 06/07/17 13:14 13:14 12:44 PT with INR 10.70 INR 0.95 PTT (Actin FS) 32.0 Sodium 136 Potassium 4.5 Chloride 97 L Carbon Dioxide 30 Anion Gap 9 BUN 18 Creatinine 0.8 Creat Clearance w eGFR > 60 POC Glucometer [phone] Random Glucose 296 H Calcium 9.3 Total Bilirubin 0.2 D AST 17 D ALT 25 Alkaline Phosphatase 143 H Creatine Kinase 91 Troponin I < 0.02 B-Natriuretic Peptide 62.05 Total Protein 7.0 Albumin 3.4 06/07/17 06/07/17 13:14 12:44 RBC 5.15 MCV 86.0 MCHC 32.9 RDW 14.4 MPV 10.2 D Neutrophils % 43.5 Lymphocytes % 42.5 H Monocytes % 9.4 Eosinophils % 3.4 Basophils % 1.2 POC Glucometer [phone] - RADIOLOGY Radiology Studies Ordered: Category Date Time Status CHEST PA & LAT [RAD] Stat Radiology 06/07/17 12:41 Completed Medical Decision Making - Medical Decision Making 06/07/17 15:06 56 M with h/o CAD/CABG presenting with transient episode of chest pain yesterday in the context of smoking a cigar. Pt with nonischemic EKG. Pt's chest pain is very atypical and not consistent with cardiac chest pain. More likely, it was related to smoking. Given pt's h/o CABG, will r/o ACS with troponin. - Labs, trop - CXR 06/07/17 18:06 CBC,CMP WBC 6.2 K/mm3 (4.0-10.0) D 06/07/17 13:14 RBC 5.15 M/mm3 (4.00-5.60) 06/07/17 13:14 Hgb 14.6 GM/dL (11.7-16.9) 06/07/17 13:14 Hct 44.3 % (35.4-49) 06/07/17 13:14 MCV 86.0 fl (80-96) 06/07/17 13:14 MCH 28.3 pg (25.7-33.7) 06/07/17 13:14 MCHC 32.9 g/dl (32.0-35.9) 06/07/17 13:14 RDW 14.4 % (11.9-15.9) 06/07/17 13:14 Plt Count 144 K/MM3 (134-434) 06/07/17 13:14 MPV 10.2 fl (7.5-11.1) D 06/07/17 13:14 Absolute Neuts (auto) 2.7 # (42.8-82.8) L 06/07/17 13:14 Absolute Lymphs (auto) 2.6 (8-40) L 06/07/17 13:14 Absolute Monos (auto) 0.6 # (3.8-10.2) L 06/07/17 13:14 Absolute Eos (auto) 0.2 # (0-4.5) 06/07/17 13:14 Absolute Basos (auto) 0.1 # (0.1-1) 06/07/17 13:14 Neutrophils % 43.5 % (42.8-82.8) 06/07/17 13:14 Lymphocytes % 42.5 % (8-40) H 06/07/17 13:14 Monocytes % 9.4 % (3.8-10.2) 06/07/17 13:14 Eosinophils % 3.4 % (0-4.5) 06/07/17 13:14 Basophils % 1.2 % (0-2.0) 06/07/17 13:14 Sodium 136 mmol/L (136-145) 06/07/17 13:14 Potassium 4.5 mmol/L (3.5-5.1) 06/07/17 13:14 Chloride 97 mmol/L (98-107) L 06/07/17 13:14 Carbon Dioxide 30 mmol/L (21-32) 06/07/17 13:14 Anion Gap 9 (8-16) 06/07/17 13:14 BUN 18 mg/dL (7-18) 06/07/17 13:14 Creatinine 0.8 mg/dL (0.7-1.3) 06/07/17 13:14 Creat Clearance w eGFR > 60 (>60) 06/07/17 13:14 POC Glucometer [phone] UNITS (80-120) 06/07/17 12:44 Random Glucose 296 mg/dL (74-106) H 06/07/17 13:14 Calcium 9.3 mg/dL (8.5-10.1) 06/07/17 13:14 Total Bilirubin 0.2 mg/dL (0.2-1.0) D 06/07/17 13:14 AST 17 U/L (15-37) D 06/07/17 13:14 ALT 25 U/L (12-78) 06/07/17 13:14 Alkaline Phosphatase 143 U/L (45-117) H 06/07/17 13:14 Creatine Kinase 91 IU/L (39-308) 06/07/17 13:14 Troponin I < 0.02 ng/ml (0.00-0.05) 06/07/17 13:14 B-Natriuretic Peptide 62.05 pg/ml (5-125) 06/07/17 13:14 Total Protein 7.0 g/dl (6.4-8.2) 06/07/17 13:14 Albumin 3.4 g/dl (3.4-5.0) 06/07/17 13:14 Trop negative. Pt reassessed - continues to feel well without recurrence of chest pain. Pt well appearing with normal vitals. Clinically stable for DC back to [facility]. I discussed the physical exam findings, ancillary test results and final diagnoses with the patient. I answered all of the patient's questions. The patient was satisfied with the care received and felt comfortable with the discharge plan and treatment plan. The patient agrees to follow up with the primary care physician within 24-72 hours. *DC/Admit/Observation/Transfer Diagnosis at time of Disposition: Chest pain - Discharge Dispostion Disposition: HOME - Referrals Referrals: Cosmo Aquino MD [Staff Physician] - - Patient Instructions Printed Discharge Instructions: DI for Chest Pain Additional Instructions: You must follow up with a oncology specialist regarding your chest pain. Call the number provided to make an appointment within 1 week. If you experience recurrent chest pain, shortness of breath, or any other concerning symptoms, return to the ER immediately. - Post Discharge Activity - Attestations Physician Attestion: 06/07/17 18:09 I, Dr. Skip Schaffer MD, attest that this document has been prepared under my direction and personally reviewed by me in its entirety. I further attest, that it accurately reflects all work, treatment, procedures and medical decision -making performed by me.
[2017-06-07 18:34] LABS: CPK 79 IU/L (39-308); TROPONIN I < 0.02 ng/ml (0.00-0.05)
[2017-06-07 21:19] VITALS: BP 144/86; PULSE 82; TEMP 98.7
--- NOTE | 2017-06-08 16:26 | EKG ---
Test Reason : Blood Pressure : / mmHG Vent. Rate : 069 BPM Atrial Rate : 069 BPM P-R Int : 160 ms QRS Dur : 086 ms QT Int : 400 ms P-R-T Axes : 024 071 052 degrees QTc Int : 428 ms NORMAL SINUS RHYTHM NONSPECIFIC T WAVE ABNORMALITY ABNORMAL ECG WHEN COMPARED WITH ECG OF 06-JUN-2017 18:34, NONSPECIFIC T WAVE ABNORMALITY NOW EVIDENT IN LATERAL LEADS Confirmed by KODY WOODS MD ([id number]) on 06/08/2017 4:25:54 PM Referred By: Confirmed By:KODY WOODS MD
== END 2017-06-07 21:18 | disposition home or self-care (01) ==
LOC: JER 11:57
DX: R07.89 Other chest pain (principal); E11.9 Type 2 diabetes mellitus without complications; Z79.4 Long term (current) use of insulin; Z79.84 Long term (current) use of oral hypoglycemic drugs; I25.2 Old myocardial infarction; I11.9 Hypertensive heart disease without heart failure; F17.210 Nicotine dependence, cigarettes, uncomplicated; Z95.1 Presence of aortocoronary bypass graft; F11.20 Opioid dependence, uncomplicated
CPT/HCPCS: 36415; 71020-TC; 80053; 82550; 83880; 84484; 85025; 85610; 85730; 93005; 93010; 99282-25

== ENCOUNTER 2017-08-24 11:18 | Inpatient (IN) | payer OTHER ==
[2017-08-24 13:17] VITALS: BMI 27.4
--- NOTE | 2017-08-24 19:24 | HP ---
COWS - Scale Resting Pulse: 1= SC 81-100 Sweatin=Flushed/Facial Moisture Restless Observation: 1= Difficult to Sit Still Pupil Size: 0= Normal to Room Light Bone or Joint Aches: 2= Severe Diffuse Aches Runny Nose/ Eye Tearin= Nasal Congestion GI Upset > 30mins: 2= Nausea/Diarrhea Tremor Observation: 2= Slight Tremor Visible Yawning Observation: 1= 1-2x During Session Anxiety or Irritability: 2=Irritable/Anxious Goose Flesh Skin: 0=Smooth Skin COWS Score: 14 Admission ROS S - HPI Chief Complaint: " I want to stop using heroin, I need to stop" Allergies/Adverse Reactions: Allergies Allergy/AdvReac Type Severity Reaction Status Date / Time No Known Allergies Allergy Verified 06/07/17 12:07 History of Present Illness: 56 y/o male with a 35 year history of heroin abuse presents today requesting detox from heroin. Pt states he had a 3 years previous sober period. Has been in several detox programs and has been at the facility previously. Hx of diabetes. Denies previous or current suicidal ideation. Exam Limitations: No Limitations - Ebola screening Have you traveled outside of the country in the last 21 days: No (N) Have you had contact with anyone from an Ebola affected area: No Have you been sick,other than usual withdrawal symptoms: No Do you have a fever: No - Review of Systems Constitutional: Unintentional Wgt. Loss EENT: reports: Nose Congestion Cardiac: reports: No Symptoms Reported GI: reports: Diarrhea : reports: No Symptoms Reported Musculoskeletal: reports: Back Pain, Joint Pain (has arthritis of the spine, pain also from withdrawing) Integumentary: reports: Other (track mcfadden to b/l hands and antecubital areas) Neuro: reports: No Symptoms reported Endocrine: reports: Flushing Hematology: reports: No Symptoms Reported Psychiatric: reports: Anxious Other Systems: Reviewed and Negative Patient History - Patient Medical History Hx Anemia: No Hx Asthma: No Hx Chronic Obstructive Pulmonary Disease (COPD): No Hx Cancer: No Hx Cardiac Disorders: No Hx Congestive Heart Failure: No Hx Hypertension: No Hx Hypercholesterolemia: No Hx Pacemaker: No HX Cerebrovascular Accident: No Hx Seizures: No Hx Dementia: No Hx Diabetes: Yes (On insulin, metformin) Hx Gastrointestinal Disorders: No Hx Liver Disease: Yes (Hep C - not on meds) Hx Genitourinary Disorders: No Hx Sexually Transmitted Disorders: No Hx Renal Disease (ESRD): No Hx Thyroid Disease: No Hx Human Immunodeficiency Virus (HIV): No Hx Hepatitis C: Yes (Not treated) Hx Depression: Yes (drug induced) Hx Suicide Attempt: No (Denies SI) Hx Bipolar Disorder: No Hx Schizophrenia: No - Patient Surgical History Past Surgical History: No Hx Neurologic Surgery: No Hx Cataract Extraction: No Hx Cardiac Surgery: Yes (triple bypass in 12/2015) Hx Lung Surgery: No Hx Breast Surgery: No Hx Breast Biopsy: No Hx Abdominal Surgery: No Hx Appendectomy: No Hx Cholecystectomy: No Hx Genitourinary Surgery: No Hx Section: No Hx Orthopedic Surgery: No Hx Hysterectomy: No Anesthesia Reaction: No - PPD History Previous Implant?: Yes Documented Results: Positive w/o proof Implanted On Prior [facility] Admission?: Yes PPD to be Administered?: No - Smoking Cessation Smoking history: Current every day smoker (cigars ocassionally, denies cigarrette smoking) Have you smoked in the past 12 months: Yes Aproximately how many cigarettes per day: 9 If you are a former smoker, when did you quit?: at age 30 Cigars Per Day: 4 Hx Chewing Tobacco Use: No Initiated information on smoking cessation: Yes 'Breaking Loose' booklet given: 08/24/17 - Substance & Tx. History Hx Alcohol Use: No Hx Substance Use: Yes (heroin) Substance Use Type: Heroin - Substances Abused Heroin Route: Injection Frequency: Daily Amount used: 5-6 bags Age of first use: 25 Date of Last Use: 08/23/17 Family Disease History - Family Disease History Family Disease History: Diabetes: Grandparent, Heart Disease: Father ([place]) Admission Physical Exam S - Vital Signs Vital Signs: Vital Signs - 24 hr 08/24/17 13:10 Temperature 97 F L Pulse Rate 82 Respiratory 20 Rate Blood Pressure 154/96 - Physical General Appearance: Yes: Moderate Distress HEENTM: Yes: Nasal Congestion Respiratory: Yes: Lungs Clear, No Accessory Muscle Use Neck: Yes: No masses,lesions,Nodules Breast: Yes: Breast Exam Deferred Cardiology: Yes: Regular Rhythm, Regular Rate, S1, S2 Abdominal: Yes: Non Tender, Increased Bowel Sounds Genitourinary: Yes: Within Normal Limits Back: Yes: Normal Inspection Musculoskeletal: Yes: Gait Steady, Muscle weakness Extremities: Yes: Tremors, Other (track mcfadden to hands and Ac areas) Neurological: Yes: Within Normal Limits Integumentary: Yes: Track Mcfadden (Both hands, AC areas) Lymphatic: Yes: Within Normal Limits - Diagnostic (1) Opioid dependence with withdrawal Current Visit: No Status: Acute (2) Abscess of right hand Current Visit: Yes Status: Acute (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 (4) Type 2 diabetes mellitus Current Visit: No Status: Chronic Qualifiers: Diabetes mellitus intermission coordinator insulin use: with fpc use Diabetes mellitus complication status: without complication Qualified Code(s): E11.9 - Type 2 diabetes mellitus without complications; Z79.4 - intermission coordinator (current) use of insulin; Z79.4 - retirement (current) use of insulin; Z79.4 - intermission coordinator ( current) use of insulin; Z79.4 - retirement (current) use of insulin (5) Chronic low back pain Current Visit: No Status: Chronic Qualifiers: Back pain laterality: unspecified Sciatica presence: unspecified whether sciatica present Qualified Code(s): M54.5 - Low back pain; G89.29 - Other chronic pain; G89.29 - Other chronic pain Cleared for Admission [facility] - Detox or Rehab [facility] Level of Care: Medically Managed Detox Regimen/Protocol: Methadone [facility] Breath Alcohol Content Breath Alcohol Content: 0 Urine Drug Screen - Results Drug Screen Negative: No Urine Drug Screen Results: OPI-Opiates
[2017-08-24] MEDS ORDERED: NICOTINE POLACRILEX 2 MG GUM BUC PRN (19:37)
[2017-08-24] MEDS ORDERED: LOPERAMIDE HCL 2 MG CAPSULE PO PRN (19:37)
[2017-08-24] MEDS ORDERED: hydrOXYzine PAMOATE 50 MG CAPSULE (FP) PO PRN (19:37)
[2017-08-24] MEDS ORDERED: MENTHOL/PHENOL 1 EACH UD MM PRN (19:37)
[2017-08-24] MEDS ORDERED: IBUPROFEN 400 MG TABLET (FP) PO PRN (19:37)
[2017-08-24] MEDS ORDERED: MAG HYDROX/AL HYDROX/SIMETH 30 ML UNIT-DOSE CUP PO PRN (19:37)
[2017-08-24] MEDS ORDERED: P-EPHED 60MG/TRIPROLIDI 2.5MG TABLET PO PRN (19:37)
[2017-08-24] MEDS ORDERED: METHADONE HCL 10 MG TABLET (FOR DETOX USE ONLY) PO ONE ×2 (19:37→23:00)
[2017-08-24] MEDS ORDERED: guaiFENesin/D-METHORPHAN HB 10 ML UNIT-DOSE CUPS PO PRN (19:37)
[2017-08-24] MEDS ORDERED: MAGNESIUM CITRATE 300 ML BOTTLE PO PRN (19:37)
[2017-08-24] MEDS ORDERED: MAGNESIUM HYDROX 2400MG/30ML ORAL SUSPENSION 30 ML CUP PO PRN (19:37)
[2017-08-24] MEDS ORDERED: IBUPROFEN 600 MG TABLET (FP) PO PRN (20:54)
[2017-08-24] MEDS: diazePAM 5 MG TABLET PO PRN (20:55)
[2017-08-24] MEDS: THIAMINE HCL 100 MG TABLET (FP) PO SCH (22:40)
[2017-08-24] MEDS: metFORMIN HCL 500 MG TABLET (FP) PO SCH (22:40)
[2017-08-25 00:39] LABS: URINE APPEARANCE CLEAR; URINE BILIRUBIN NEGATIVE (NEGATIVE); URINE BLOOD NEGATIVE (NEGATIVE); URINE COLOR LTYELLOW; URINE GLUCOSE (UA) 3+ (NEGATIVE); URINE KETONE TRACE (NEGATIVE); URINE LEUK ESTERASE NEGATIVE (NEGATIVE); URINE NITRITE NEGATIVE (NEGATIVE); URINE PROTEIN NEGATIVE (NEGATIVE); URINE UROBILINOGEN NEGATIVE mg/dL (0.2-1.0)
[2017-08-25] MEDS ORDERED: INSULIN (NOVOLOG) ASPART 100 UNITS/ML 10ML VIAL ONE ×2 (07:33→17:04)
[2017-08-25] MEDS: metFORMIN HCL 500 MG TABLET (FP) PO SCH ×2 (07:34→22:39)
[2017-08-25] MEDS: INSULIN SLIDING SCALE (NOVOLOG) 1 VIAL SQ SCH ×2 (07:34→17:46)
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
[2017-08-25] MEDS ORDERED: METHADONE HCL 10 MG TABLET (FOR DETOX USE ONLY) PO ONE (10:00)
[2017-08-25 10:11] LABS: HEMATOCRIT 44.7 % (35.4-49); HEMOGLOBIN 15.3 GM/dL (11.7-16.9); MCH 29.3 pg (25.7-33.7); MCHC 34.3 g/dl (32.0-35.9); MEAN CELL VOLUME 85.3 fl (80-96); MEAN PLT VOLUME 10.3 fl (7.5-11.1); PLATELET COUNT 156 K/MM3 (134-434); RBC 5.24 M/mm3 (4.00-5.60); RDW 13.7 % (11.9-15.9); WHITE BLOOD COUNT 7.7 K/mm3 (4.0-10.0)
[2017-08-25 10:14] LABS: ALBUMIN 3.5 g/dl (3.4-5.0); ANION GAP 6 (8-16); CALCIUM 8.6 mg/dL (8.5-10.1); CHLORIDE 101 mmol/L (98-107); CO2 28 mmol/L (21-32); GLUCOSE,RANDOM 305 mg/dL (74-106); SODIUM 135 mmol/L (136-145)
[2017-08-25 10:23] LABS: ALK PHOS 142 U/L (45-117); BILIRUBIN,TOTAL 0.6 mg/dL (0.2-1.0); BLOOD UREA NITROGEN 13 mg/dL (7-18); CREATININE 0.8 mg/dL (0.7-1.3); SGOT/AST 26 U/L (15-37); SGPT/ALT 28 U/L (12-78); TOT PROT 7.2 g/dl (6.4-8.2)
[2017-08-25] MEDS: PRENATAL VITAMINS W/ FOLIC ACID TABLET (FP) PO SCH (10:55)
[2017-08-25] MEDS: ASPIRIN 81 MG CHEWABLE TABLETS PO SCH (10:55)
[2017-08-25] MEDS: diazePAM 5 MG TABLET PO PRN (10:56)
--- NOTE | 2017-08-25 17:14 | PN ---
BHS COWS - Scale Resting Pulse: 1= PA 81-100 Sweatin=Flushed/Facial Moisture Restless Observation: 3= Extraneous Movement Pupil Size: 0= Normal to Room Light Bone or Joint Aches: 2= Severe Diffuse Aches Runny Nose/ Eye Tearin= Runny Nose/Eyes GI Upset > 30mins: 2= Nausea/Diarrhea Tremor Observation of Outstretched Hands: 2= Slight Tremor Visible Yawning Observation: 0= None Anxiety or Irritability: 2=Irritable/Anxious Goose Flesh Skin: 0=Smooth Skin COWS Score: 16 BHS Progress Note (SOAP) Subjective: Stomach ache, body ache, diarrhea x 2, sweating, interrupted sleep Objective: 08/25/17 17:11 Last Vital Signs Temp Pulse Resp BP Pulse Ox 96.6 F L 84 18 157/93 08/25/17 14:28 08/25/17 14:28 08/25/17 14:28 08/25/17 14:28 Laboratory Tests 08/24/17 08/25/17 08/25/17 22:42 00:01 07:20 WBC 7.7 RBC 5.24 Hgb 15.3 Hct 44.7 MCV 85.3 MCH 29.3 MCHC 34.3 RDW 13.7 Plt Count 156 MPV 10.3 Sodium Potassium Chloride Carbon Dioxide Anion Gap BUN Creatinine Creat Clearance w eGFR POC Glucometer 349 Random Glucose Calcium Total Bilirubin AST ALT Alkaline Phosphatase Total Protein Albumin Urine Color Ltyellow Urine Appearance Clear Urine pH 7.0 D Ur Specific [place] 1.037 H Urine Protein Negative Urine Glucose (UA) 3+ H Urine Ketones Trace H Urine Blood Negative Urine Nitrite Negative Urine Bilirubin Negative Urine Urobilinogen Negative Ur Leukocyte Esterase Negative RPR Titer 08/25/17 08/25/17 08/25/17 07:20 07:20 07:22 WBC RBC Hgb Hct MCV MCH MCHC RDW Plt Count MPV Sodium 135 L Potassium 4.0 Chloride 101 Carbon Dioxide 28 Anion Gap 6 L BUN 13 D Creatinine 0.8 Creat Clearance w eGFR > 60 POC Glucometer 293 Random Glucose 305 H* Calcium 8.6 Total Bilirubin 0.6 D AST 26 D ALT 28 Alkaline Phosphatase 142 H Total Protein 7.2 Albumin 3.5 Urine Color Urine Appearance Urine pH Ur Specific [place] Urine Protein Urine Glucose (UA) Urine Ketones Urine Blood Urine Nitrite Urine Bilirubin Urine Urobilinogen Ur Leukocyte Esterase RPR Titer Nonreactive Labs reviewed: hyperglycemia Assessment: 08/25/17 17:11 Withdrawal symptoms Pmhx of DMT2 with hyperglycemia: noted with hyperglycemia Plan: Continue detox DMT2 with hyperglycemia: encouraged adherence to diet and to drink more water and avoid sugary intake, continue present regimen, encourage diet and exercise to lose weight
--- NOTE | 2017-08-25 20:35 | EKG ---
Test Reason : Blood Pressure : / mmHG Vent. Rate : 080 BPM Atrial Rate : 080 BPM P-R Int : 154 ms QRS Dur : 082 ms QT Int : 364 ms P-R-T Axes : 072 069 046 degrees QTc Int : 419 ms NORMAL SINUS RHYTHM POSSIBLE LEFT ATRIAL ENLARGEMENT BORDERLINE ECG WHEN COMPARED WITH ECG OF 07-JUN-2017 12:13, T WAVE VARIATION Confirmed by JOSH SOLANO MD ([id number]) on 08/25/2017 8:35:32 PM Referred By: Confirmed By:JOSH SOLANO MD
[2017-08-25] MEDS: QUEtiapine FUMARATE 50 MG TABLET PO SCH (22:39)
[2017-08-25] MEDS: THIAMINE HCL 100 MG TABLET (FP) PO SCH (22:39)
[2017-08-26] MEDS: diazePAM 5 MG TABLET PO PRN (06:02)
[2017-08-26] MEDS: metFORMIN HCL 500 MG TABLET (FP) PO SCH ×2 (06:06→22:54)
[2017-08-26] MEDS: INSULIN SLIDING SCALE (NOVOLOG) 1 VIAL SQ SCH ×2 (07:02→17:11)
[2017-08-26] MEDS ORDERED: INSULIN (NOVOLOG) ASPART 100 UNITS/ML 10ML VIAL ONE ×2 (07:18→16:59)
[2017-08-26] MEDS ORDERED: METHADONE HCL 5 MG TABLET (FOR DETOX USE ONLY) PO ONE (10:00)
--- NOTE | 2017-08-26 10:41 | PN ---
BHS COWS - Scale Resting Pulse: 1= [place] 81-100 Sweatin= Chills/Flushing Restless Observation: 3= Extraneous Movement Pupil Size: 0= Normal to Room Light Bone or Joint Aches: 4=Acute Joint/Muscle Pain Runny Nose/ Eye Tearin= Nasal Congestion GI Upset > 30mins: 1= Stomach Cramp Tremor Observation of Outstretched Hands: 2= Slight Tremor Visible Yawning Observation: 2= >3x During Session Anxiety or Irritability: 2=Irritable/Anxious Goose Flesh Skin: 0=Smooth Skin COWS Score: 17 BHS Progress Note (SOAP) Subjective: ANXIETY,IRRITABILITY, SWEATS, BACK PAIN. Objective: 08/26/17 10:40 Vital Signs Temperature 97.0 F L 08/26/17 10:17 Pulse Rate 86 08/26/17 10:17 Respiratory Rate 18 08/26/17 10:17 Blood Pressure 134/74 08/26/17 10:17 O2 Sat by Pulse Oximetry (%) Laboratory Last Values WBC 7.7 K/mm3 (4.0-10.0) 08/25/17 07:20 RBC 5.24 M/mm3 (4.00-5.60) 08/25/17 07:20 Hgb 15.3 GM/dL (11.7-16.9) 08/25/17 07:20 Hct 44.7 % (35.4-49) 08/25/17 07:20 MCV 85.3 fl (80-96) 08/25/17 07:20 MCH 29.3 pg (25.7-33.7) 08/25/17 07:20 MCHC 34.3 g/dl (32.0-35.9) 08/25/17 07:20 RDW 13.7 % (11.9-15.9) 08/25/17 07:20 Plt Count 156 K/MM3 (134-434) 08/25/17 07:20 MPV 10.3 fl (7.5-11.1) 08/25/17 07:20 Sodium 135 mmol/L (136-145) L 08/25/17 07:20 Potassium 4.0 mmol/L (3.5-5.1) 08/25/17 07:20 Chloride 101 mmol/L (98-107) 08/25/17 07:20 Carbon Dioxide 28 mmol/L (21-32) 08/25/17 07:20 Anion Gap 6 (8-16) L 08/25/17 07:20 BUN 13 mg/dL (7-18) D 08/25/17 07:20 Creatinine 0.8 mg/dL (0.7-1.3) 08/25/17 07:20 Creat Clearance w eGFR > 60 (>60) 08/25/17 07:20 POC Glucometer 294 UNITS (80-120) 08/26/17 06:04 Random Glucose 305 mg/dL (74-106) H* 08/25/17 07:20 Calcium 8.6 mg/dL (8.5-10.1) 08/25/17 07:20 Total Bilirubin 0.6 mg/dL (0.2-1.0) D 08/25/17 07:20 AST 26 U/L (15-37) D 08/25/17 07:20 ALT 28 U/L (12-78) 08/25/17 07:20 Alkaline Phosphatase 142 U/L (45-117) H 08/25/17 07:20 Total Protein 7.2 g/dl (6.4-8.2) 08/25/17 07:20 Albumin 3.5 g/dl (3.4-5.0) 08/25/17 07:20 Urine Color Ltyellow 08/25/17 00:01 Urine Appearance Clear 08/25/17 00:01 Urine pH 7.0 (5.0-8.0) D 08/25/17 00:01 Ur Specific [place] 1.037 (1.001-1.035) H 08/25/17 00:01 Urine Protein Negative (NEGATIVE) 08/25/17 00:01 Urine Glucose (UA) 3+ (NEGATIVE) H 08/25/17 00:01 Urine Ketones Trace (NEGATIVE) H 08/25/17 00:01 Urine Blood Negative (NEGATIVE) 08/25/17 00:01 Urine Nitrite Negative (NEGATIVE) 08/25/17 00:01 Urine Bilirubin Negative (NEGATIVE) 08/25/17 00:01 Urine Urobilinogen Negative mg/dL (0.2-1.0) 08/25/17 00:01 Ur Leukocyte Esterase Negative (NEGATIVE) 08/25/17 00:01 RPR Titer Nonreactive (NONREACTIVE) 08/25/17 07:20 Assessment: 08/26/17 10:40 WITHDRAWAL SX Plan: CONTINUE DETOX LIDOCAINE PATCH 5 % TRANSDERMAL APPLY DIRECTED.
[2017-08-26] MEDS: PRENATAL VITAMINS W/ FOLIC ACID TABLET (FP) PO SCH (10:54)
[2017-08-26] MEDS: ASPIRIN 81 MG CHEWABLE TABLETS PO SCH (10:54)
[2017-08-26] MEDS: PANTOPRAZOLE 40 MG TABLET (FP) PO SCH (12:32)
[2017-08-26] MEDS: LIDOCAINE 5% TOPICAL PATCH TP SCH (12:33)
[2017-08-26] MEDS: ACETAMINOPHEN 325 MG TABLET (FP) PO PRN (17:13)
[2017-08-26] MEDS ORDERED: cloNIDine HCL 0.1 MG TABLET PO ONE (18:27)
[2017-08-26] MEDS ORDERED: QUEtiapine FUMARATE 25 MG TABLET (FP) ONE (21:24)
[2017-08-26] MEDS: cloNIDine HCL 0.1 MG TABLET PO SCH (22:54)
[2017-08-26] MEDS: BACITRACIN 0.9 GM PACKET TP SCH (22:54)
[2017-08-26] MEDS: QUEtiapine FUMARATE 50 MG TABLET PO SCH (22:55)
[2017-08-26] MEDS: NAPROXEN 500 MG TABLET (FP) PO SCH (22:55)
[2017-08-26] MEDS: THIAMINE HCL 100 MG TABLET (FP) PO SCH (22:55)
[2017-08-26] MEDS: LIDOCAINE PATCH REMOVAL MC SCH (22:55)
[2017-08-27] MEDS: metFORMIN HCL 500 MG TABLET (FP) PO SCH ×2 (06:45→22:38)
[2017-08-27] MEDS ORDERED: INSULIN (NOVOLOG) ASPART 100 UNITS/ML 10ML VIAL ONE ×2 (06:59→17:12)
[2017-08-27] MEDS: INSULIN SLIDING SCALE (NOVOLOG) 1 VIAL SQ SCH ×2 (07:52→17:16)
[2017-08-27] MEDS ORDERED: METHADONE HCL 5 MG TABLET (FOR DETOX USE ONLY) PO ONE (10:00)
[2017-08-27] MEDS: NAPROXEN 500 MG TABLET (FP) PO SCH ×2 (10:31→22:38)
[2017-08-27] MEDS: PRENATAL VITAMINS W/ FOLIC ACID TABLET (FP) PO SCH (10:31)
[2017-08-27] MEDS: LIDOCAINE 5% TOPICAL PATCH TP SCH (10:31)
[2017-08-27] MEDS: BACITRACIN 0.9 GM PACKET TP SCH ×2 (10:31→22:37)
[2017-08-27] MEDS: ASPIRIN 81 MG CHEWABLE TABLETS PO SCH (10:31)
[2017-08-27] MEDS: cloNIDine HCL 0.1 MG TABLET PO SCH ×2 (10:31→22:37)
[2017-08-27] MEDS: PANTOPRAZOLE 40 MG TABLET (FP) PO SCH (10:31)
--- NOTE | 2017-08-27 11:56 | PN ---
BHS Progress Note (SOAP) Subjective: ANXIETY,IRRITABILITY,SWEATS/CHILLS, CHRONIC BACK PAIN-REPORTS SLIGHT RELIEF WITH LIDOCAINE PATCH. Objective: 08/27/17 11:56 Vital Signs Temperature 96.2 F L 08/27/17 10:28 Pulse Rate 91 H 08/27/17 10:28 Respiratory Rate 20 08/27/17 10:28 Blood Pressure 135/86 08/27/17 10:28 O2 Sat by Pulse Oximetry (%) Laboratory Last Values WBC 7.7 K/mm3 (4.0-10.0) 08/25/17 07:20 RBC 5.24 M/mm3 (4.00-5.60) 08/25/17 07:20 Hgb 15.3 GM/dL (11.7-16.9) 08/25/17 07:20 Hct 44.7 % (35.4-49) 08/25/17 07:20 MCV 85.3 fl (80-96) 08/25/17 07:20 MCH 29.3 pg (25.7-33.7) 08/25/17 07:20 MCHC 34.3 g/dl (32.0-35.9) 08/25/17 07:20 RDW 13.7 % (11.9-15.9) 08/25/17 07:20 Plt Count 156 K/MM3 (134-434) 08/25/17 07:20 MPV 10.3 fl (7.5-11.1) 08/25/17 07:20 Sodium 135 mmol/L (136-145) L 08/25/17 07:20 Potassium 4.0 mmol/L (3.5-5.1) 08/25/17 07:20 Chloride 101 mmol/L (98-107) 08/25/17 07:20 Carbon Dioxide 28 mmol/L (21-32) 08/25/17 07:20 Anion Gap 6 (8-16) L 08/25/17 07:20 BUN 13 mg/dL (7-18) D 08/25/17 07:20 Creatinine 0.8 mg/dL (0.7-1.3) 08/25/17 07:20 Creat Clearance w eGFR > 60 (>60) 08/25/17 07:20 POC Glucometer 300 UNITS (80-120) 08/27/17 06:31 Random Glucose 305 mg/dL (74-106) H* 08/25/17 07:20 Calcium 8.6 mg/dL (8.5-10.1) 08/25/17 07:20 Total Bilirubin 0.6 mg/dL (0.2-1.0) D 08/25/17 07:20 AST 26 U/L (15-37) D 08/25/17 07:20 ALT 28 U/L (12-78) 08/25/17 07:20 Alkaline Phosphatase 142 U/L (45-117) H 08/25/17 07:20 Total Protein 7.2 g/dl (6.4-8.2) 08/25/17 07:20 Albumin 3.5 g/dl (3.4-5.0) 08/25/17 07:20 Urine Color Ltyellow 08/25/17 00:01 Urine Appearance Clear 08/25/17 00:01 Urine pH 7.0 (5.0-8.0) D 08/25/17 00:01 Ur Specific [place] 1.037 (1.001-1.035) H 08/25/17 00:01 Urine Protein Negative (NEGATIVE) 08/25/17 00:01 Urine Glucose (UA) 3+ (NEGATIVE) H 08/25/17 00:01 Urine Ketones Trace (NEGATIVE) H 08/25/17 00:01 Urine Blood Negative (NEGATIVE) 08/25/17 00:01 Urine Nitrite Negative (NEGATIVE) 08/25/17 00:01 Urine Bilirubin Negative (NEGATIVE) 08/25/17 00:01 Urine Urobilinogen Negative mg/dL (0.2-1.0) 08/25/17 00:01 Ur Leukocyte Esterase Negative (NEGATIVE) 08/25/17 00:01 RPR Titer Nonreactive (NONREACTIVE) 08/25/17 07:20 HIV 1&2 Antibody Screen Negative 08/25/17 07:20 HIV P24 Antigen Negative 08/25/17 07:20 Assessment: 08/27/17 11:56 WITHDRAWAL SX Plan: CONTINUE DETOX FLEXERIL 10 MG PO TID
[2017-08-27] MEDS: CYCLOBENZAPRINE HCL 10 MG TABLET (FP) PO SCH ×2 (13:28→22:37)
[2017-08-27] MEDS: LIDOCAINE PATCH REMOVAL MC SCH (22:36)
[2017-08-27] MEDS: QUEtiapine FUMARATE 50 MG TABLET PO SCH (22:37)
[2017-08-27] MEDS: THIAMINE HCL 100 MG TABLET (FP) PO SCH (22:37)
[2017-08-28] MEDS: CYCLOBENZAPRINE HCL 10 MG TABLET (FP) PO SCH ×3 (06:14→23:07)
[2017-08-28] MEDS: metFORMIN HCL 500 MG TABLET (FP) PO SCH ×2 (06:14→23:07)
[2017-08-28] MEDS: ACETAMINOPHEN 325 MG TABLET (FP) PO PRN (06:14)
[2017-08-28] MEDS ORDERED: INSULIN (NOVOLOG) ASPART 100 UNITS/ML 10ML VIAL ONE ×2 (06:18→17:40)
[2017-08-28] MEDS: INSULIN SLIDING SCALE (NOVOLOG) 1 VIAL SQ SCH ×2 (08:16→16:35)
[2017-08-28] MEDS ORDERED: METHADONE HCL 10 MG TABLET (FOR DETOX USE ONLY) PO ONE (10:00)
[2017-08-28] MEDS: ASPIRIN 81 MG CHEWABLE TABLETS PO SCH (10:45)
[2017-08-28] MEDS: BACITRACIN 0.9 GM PACKET TP SCH ×2 (10:45→23:06)
[2017-08-28] MEDS: PRENATAL VITAMINS W/ FOLIC ACID TABLET (FP) PO SCH (10:45)
[2017-08-28] MEDS: NAPROXEN 500 MG TABLET (FP) PO SCH ×2 (10:45→23:07)
[2017-08-28] MEDS: cloNIDine HCL 0.1 MG TABLET PO SCH ×2 (10:45→23:07)
[2017-08-28] MEDS: PANTOPRAZOLE 40 MG TABLET (FP) PO SCH (10:45)
[2017-08-28] MEDS: LIDOCAINE 5% TOPICAL PATCH TP SCH (10:46)
--- NOTE | 2017-08-28 15:33 | PN ---
S Progress Note (SOAP) Subjective: Fatigue, H/A, Constipation, Body Aches. Objective: PATIENT A & O X 3, OBSERVED AMBULATING ON UNIT. NO ACUTE DISTRESS. 08/28/17 15:31 Vital Signs Temperature 97.9 F 08/28/17 13:45 Pulse Rate 77 08/28/17 13:45 Respiratory Rate 18 08/28/17 13:45 Blood Pressure 116/75 08/28/17 13:45 O2 Sat by Pulse Oximetry (%) Laboratory Tests 08/24/17 08/24/17 08/25/17 18:04 22:42 00:01 WBC RBC Hgb Hct MCV MCH MCHC RDW Plt Count MPV Sodium Potassium Chloride Carbon Dioxide Anion Gap BUN Creatinine Creat Clearance w eGFR POC Glucometer 380 349 Random Glucose Calcium Total Bilirubin AST ALT Alkaline Phosphatase Total Protein Albumin Urine Color Ltyellow Urine Appearance Clear Urine pH 7.0 D Ur Specific [place] 1.037 H Urine Protein Negative Urine Glucose (UA) 3+ H Urine Ketones Trace H Urine Blood Negative Urine Nitrite Negative Urine Bilirubin Negative Urine Urobilinogen Negative Ur Leukocyte Esterase Negative RPR Titer HIV 1&2 Antibody Screen HIV P24 Antigen 08/25/17 08/25/17 08/25/17 07:20 07:20 07:20 WBC 7.7 RBC 5.24 Hgb 15.3 Hct 44.7 MCV 85.3 MCH 29.3 MCHC 34.3 RDW 13.7 Plt Count 156 MPV 10.3 Sodium 135 L Potassium 4.0 Chloride 101 Carbon Dioxide 28 Anion Gap 6 L BUN 13 D Creatinine 0.8 Creat Clearance w eGFR > 60 POC Glucometer Random Glucose 305 H* Calcium 8.6 Total Bilirubin 0.6 D AST 26 D ALT 28 Alkaline Phosphatase 142 H Total Protein 7.2 Albumin 3.5 Urine Color Urine Appearance Urine pH Ur Specific [place] Urine Protein Urine Glucose (UA) Urine Ketones Urine Blood Urine Nitrite Urine Bilirubin Urine Urobilinogen Ur Leukocyte Esterase RPR Titer HIV 1&2 Antibody Screen Negative HIV P24 Antigen Negative 08/25/17 08/25/17 08/25/17 07:20 07:22 16:42 WBC RBC Hgb Hct MCV MCH MCHC RDW Plt Count MPV Sodium Potassium Chloride Carbon Dioxide Anion Gap BUN Creatinine Creat Clearance w eGFR POC Glucometer 293 296 Random Glucose Calcium Total Bilirubin AST ALT Alkaline Phosphatase Total Protein Albumin Urine Color Urine Appearance Urine pH Ur Specific [place] Urine Protein Urine Glucose (UA) Urine Ketones Urine Blood Urine Nitrite Urine Bilirubin Urine Urobilinogen Ur Leukocyte Esterase RPR Titer Nonreactive HIV 1&2 Antibody Screen HIV P24 Antigen 08/25/17 08/26/17 08/26/17 21:57 06:04 16:52 WBC RBC Hgb Hct MCV MCH MCHC RDW Plt Count MPV Sodium Potassium Chloride Carbon Dioxide Anion Gap BUN Creatinine Creat Clearance w eGFR POC Glucometer 309 294 365 Random Glucose Calcium Total Bilirubin AST ALT Alkaline Phosphatase Total Protein Albumin Urine Color Urine Appearance Urine pH Ur Specific [place] Urine Protein Urine Glucose (UA) Urine Ketones Urine Blood Urine Nitrite Urine Bilirubin Urine Urobilinogen Ur Leukocyte Esterase RPR Titer HIV 1&2 Antibody Screen HIV P24 Antigen 08/27/17 08/27/17 08/28/17 06:31 16:35 06:12 WBC RBC Hgb Hct MCV MCH MCHC RDW Plt Count MPV Sodium Potassium Chloride Carbon Dioxide Anion Gap BUN Creatinine Creat Clearance w eGFR POC Glucometer 300 381 272 Random Glucose Calcium Total Bilirubin AST ALT Alkaline Phosphatase Total Protein Albumin Urine Color Urine Appearance Urine pH Ur Specific [place] Urine Protein Urine Glucose (UA) Urine Ketones Urine Blood Urine Nitrite Urine Bilirubin Urine Urobilinogen Ur Leukocyte Esterase RPR Titer HIV 1&2 Antibody Screen HIV P24 Antigen labs noted. Assessment: 08/28/17 15:32 WITHDRAWAL SYMPTOMS. Plan: CONTINUE DETOX.
[2017-08-28] MEDS: QUEtiapine FUMARATE 50 MG TABLET PO SCH (23:06)
[2017-08-28] MEDS: LIDOCAINE PATCH REMOVAL MC SCH (23:06)
[2017-08-28] MEDS: THIAMINE HCL 100 MG TABLET (FP) PO SCH (23:06)
[2017-08-29] MEDS ORDERED: METHADONE HCL 5 MG TABLET (FOR DETOX USE ONLY) PO ONE (06:00)
[2017-08-29 06:10] VITALS: BP 107/64; PULSE 66; TEMP 97
[2017-08-29] MEDS: CYCLOBENZAPRINE HCL 10 MG TABLET (FP) PO SCH (06:29)
[2017-08-29] MEDS: metFORMIN HCL 500 MG TABLET (FP) PO SCH (06:29)
[2017-08-29] MEDS ORDERED: INSULIN (NOVOLOG) ASPART 100 UNITS/ML 10ML VIAL ONE (06:33)
[2017-08-29] MEDS: INSULIN SLIDING SCALE (NOVOLOG) 1 VIAL SQ SCH (07:28)
--- NOTE | 2017-08-29 17:29 | DS ---
[facility] Detox Discharge Summary Admission Date: 08/24/17 Discharge Date: 08/29/17 - History Present History: Opioid Dependence Additional Comments: NO BEDS ARE CURRENTLY AVAILABLE AT [facility] ([place] FOR AFTERCARE, PATIENT WILL CONTACT [facility] ADMISSIONS [facility]PARTMENT TOMORROW AM TO INQUIRE ABOUT BED AVAILABILITY AT THAT TIME. PATIENT WAS DISCHARGED FROM DETOX UNIT IN STABLE MEDICAL CONDITION. Pertinent Past History: Type II DM, HTN, Cellulitis of Right Hand, Depression, Hep C, Insomnia, PTSD, Chronic Low Back Pain, PPD Positive. - Physical Exam Results Vital Signs: Vital Signs Temperature 97.0 F L 08/29/17 06:10 Pulse Rate 66 08/29/17 06:10 Respiratory Rate 18 08/29/17 06:10 Blood Pressure 107/64 08/29/17 06:10 O2 Sat by Pulse Oximetry (%) Pertinent Admission Physical Exam Findings: WITHDRAWAL SYMPTOMS. Laboratory Tests 08/24/17 08/24/17 08/25/17 18:04 22:42 00:01 WBC RBC Hgb Hct MCV MCH MCHC RDW Plt Count MPV Sodium Potassium Chloride Carbon Dioxide Anion Gap BUN Creatinine Creat Clearance w eGFR POC Glucometer 380 349 Random Glucose Calcium Total Bilirubin AST ALT Alkaline Phosphatase Total Protein Albumin Urine Color Ltyellow Urine Appearance Clear Urine pH 7.0 D Ur Specific [place] 1.037 H Urine Protein Negative Urine Glucose (UA) 3+ H Urine Ketones Trace H Urine Blood Negative Urine Nitrite Negative Urine Bilirubin Negative Urine Urobilinogen Negative Ur Leukocyte Esterase Negative RPR Titer HIV 1&2 Antibody Screen HIV P24 Antigen 08/25/17 08/25/17 08/25/17 07:20 07:20 07:20 WBC 7.7 RBC 5.24 Hgb 15.3 Hct 44.7 MCV 85.3 MCH 29.3 MCHC 34.3 RDW 13.7 Plt Count 156 MPV 10.3 Sodium 135 L Potassium 4.0 Chloride 101 Carbon Dioxide 28 Anion Gap 6 L BUN 13 D Creatinine 0.8 Creat Clearance w eGFR > 60 POC Glucometer Random Glucose 305 H* Calcium 8.6 Total Bilirubin 0.6 D AST 26 D ALT 28 Alkaline Phosphatase 142 H Total Protein 7.2 Albumin 3.5 Urine Color Urine Appearance Urine pH Ur Specific [place] Urine Protein Urine Glucose (UA) Urine Ketones Urine Blood Urine Nitrite Urine Bilirubin Urine Urobilinogen Ur Leukocyte Esterase RPR Titer HIV 1&2 Antibody Screen Negative HIV P24 Antigen Negative 08/25/17 08/25/17 08/25/17 07:20 07:22 16:42 WBC RBC Hgb Hct MCV MCH MCHC RDW Plt Count MPV Sodium Potassium Chloride Carbon Dioxide Anion Gap BUN Creatinine Creat Clearance w eGFR POC Glucometer 293 296 Random Glucose Calcium Total Bilirubin AST ALT Alkaline Phosphatase Total Protein Albumin Urine Color Urine Appearance Urine pH Ur Specific [place] Urine Protein Urine Glucose (UA) Urine Ketones Urine Blood Urine Nitrite Urine Bilirubin Urine Urobilinogen Ur Leukocyte Esterase RPR Titer Nonreactive HIV 1&2 Antibody Screen HIV P24 Antigen 08/25/17 08/26/17 08/26/17 21:57 06:04 16:52 WBC RBC Hgb Hct MCV MCH MCHC RDW Plt Count MPV Sodium Potassium Chloride Carbon Dioxide Anion Gap BUN Creatinine Creat Clearance w eGFR POC Glucometer 309 294 365 Random Glucose Calcium Total Bilirubin AST ALT Alkaline Phosphatase Total Protein Albumin Urine Color Urine Appearance Urine pH Ur Specific [place] Urine Protein Urine Glucose (UA) Urine Ketones Urine Blood Urine Nitrite Urine Bilirubin Urine Urobilinogen Ur Leukocyte Esterase RPR Titer HIV 1&2 Antibody Screen HIV P24 Antigen 08/27/17 08/27/17 08/28/17 06:31 16:35 06:12 WBC RBC Hgb Hct MCV MCH MCHC RDW Plt Count MPV Sodium Potassium Chloride Carbon Dioxide Anion Gap BUN Creatinine Creat Clearance w eGFR POC Glucometer 300 381 272 Random Glucose Calcium Total Bilirubin AST ALT Alkaline Phosphatase Total Protein Albumin Urine Color Urine Appearance Urine pH Ur Specific [place] Urine Protein Urine Glucose (UA) Urine Ketones Urine Blood Urine Nitrite Urine Bilirubin Urine Urobilinogen Ur Leukocyte Esterase RPR Titer HIV 1&2 Antibody Screen HIV P24 Antigen 08/28/17 08/29/17 16:53 06:28 WBC RBC Hgb Hct MCV MCH MCHC RDW Plt Count MPV Sodium Potassium Chloride Carbon Dioxide Anion Gap BUN Creatinine Creat Clearance w eGFR POC Glucometer 381 238 Random Glucose Calcium Total Bilirubin AST ALT Alkaline Phosphatase Total Protein Albumin Urine Color Urine Appearance Urine pH Ur Specific [place] Urine Protein Urine Glucose (UA) Urine Ketones Urine Blood Urine Nitrite Urine Bilirubin Urine Urobilinogen Ur Leukocyte Esterase RPR Titer HIV 1&2 Antibody Screen HIV P24 Antigen LABS NOTED. - Treatment Hospital Course: Detox Protocol Followed, Detoxed Safely, Responded well, Discharged Condition Good, Rehab Referral Accepted Patient has Accepted a Rehab Referral to: [facility] ([place] . - Medication Discharge Medications: Ambulatory Orders Aspirin [ASA -] 81 mg PO DAILY 09/28/16 Insulin (Novolog) [Novolog Flexpen -] 10 units SQ TID 09/28/16 metFORMIN HCL [Glucophage -] 1,000 mg PO BID 09/28/16 Insulin Glargine,Hum.rec.anlog [Lantus Solostar PEN (NF)] 20 units SQ HS Quetiapine Fumarate [Seroquel -] 50 mg PO HS 08/24/17 Quetiapine Fumarate [Seroquel -] 50 mg PO HS #30 tablet 08/25/17 - Diagnosis (1) Opioid dependence with withdrawal Status: Acute (2) Chronic low back pain Status: Chronic Qualifiers: Back pain laterality: unspecified Sciatica presence: unspecified whether sciatica present Qualified Code(s): M54.5 - Low back pain; G89.29 - Other chronic pain; G89.29 - Other chronic pain (3) Abscess of right hand Status: Acute (4) PPD positive Status: Chronic (5) Type 2 diabetes mellitus Status: Chronic Qualifiers: Diabetes mellitus terminal operations manager insulin use: with terminal operations manager use Diabetes mellitus complication status: without complication Qualified Code(s): E11.9 - Type 2 diabetes mellitus without complications; Z79.4 - residential (current) use of insulin; Z79.4 - director long term care (current) use of insulin; Z79.4 - residential ( current) use of insulin; Z79.4 - director long term care (current) use of insulin (6) Right forearm cellulitis Status: Acute (7) Substance induced mood disorder Status: Acute (8) Substance-induced sleep disorder Status: Acute (9) Insomnia Status: Chronic (10) PTSD (post-traumatic stress disorder) Status: Chronic - AMA Did Patient Leave Against Medical Advice: No
== END 2017-08-29 09:31 | disposition home or self-care (01) | DRG 897 ==
LOC: YASAS 11:18 → Y3N 17:49
PROVIDERS: ADMIT Internal Medicine; ATTEND Internal Medicine
PROC: HZ2ZZZZ Detoxification Services for Substance Abuse Treatment (ICD-10-PCS; principal; 2017-08-24)
DX: F11.23 Opioid dependence with withdrawal (principal); F19.282 Other psychoactive substance dependence with psychoactive substance-induced sleep disorder; F17.210 Nicotine dependence, cigarettes, uncomplicated; F43.10 Post-traumatic stress disorder, unspecified; F32.9 Major depressive disorder, single episode, unspecified; F19.24 Other psychoactive substance dependence with psychoactive substance-induced mood disorder; I25.10 Atherosclerotic heart disease of native coronary artery without angina pectoris; I10 Essential (primary) hypertension; Z95.1 Presence of aortocoronary bypass graft; E11.9 Type 2 diabetes mellitus without complications; Z79.4 Long term (current) use of insulin; G47.00 Insomnia, unspecified; R76.11 Nonspecific reaction to tuberculin skin test without active tuberculosis; M54.5 Low back pain; G89.29 Other chronic pain
CPT/HCPCS: 36415; 71046-TC-FY; 80053; 81003; 82962; 85027; 86593; 87389; 93005; 93010; J0735